=== PATIENT | female | born 1945 | race Caucasian/White ===

== ENCOUNTER 2016-10-06 19:11 | Inpatient (IN) | payer OTHER ==
[~2016-10-06] VITALS: Ht 162.6 cm; Wt 75.0 kg
[2016-10-06] MEDS ORDERED: morphine 4 MG/ML VIAL IV STA (22:04)
[2016-10-06] MEDS ORDERED: SOD CHLORIDE 0.9% 500 ML IV STA (22:04)
[2016-10-06] MEDS ORDERED: ONDANSETRON 4 MG INJ IV STA (22:04)
--- NOTE | 2016-10-06 22:40 | RADRPT ---
PROCEDURE: CT BRAIN WITHOUT CONTRAST CLINICAL INDICATION: 71-year-old female with headaches. TECHNIQUE: The study was performed utilizing Encentuate VCT 64-slice CT scanner. Direct axial sections were obtained from the foramen magnum to the vertex without the use of intravenous contrast material. Sagittal and coronal reformations were obtained. One or more the following dose reduction techniques were utilized: automated exposure control, adjustment of the mA and/or kV according to p atient's size or use of iterative reconstruction technique. The images were viewed on a PACS worksta tion. CTD/vol = 39.8 mGy; Total Exam DLP = 720.2 mGy-cm. COMPARISON: None. FINDINGS: There is mild degree of diffuse cortical and central atrophy with compensatory ventricular enlargeme nt. The ventricles are dilated out of proportion to the degree of atrophy raising the question of no rmal pressure hydrocephalus. There is no evidence for midline shift. There are periventricular are as of decreased density consistent with microangiopathic ischemic changes. There is no evidence for acute intra or extra-axial blood. The partially visualized paranasal sinuses and mastoid air cells are without significant abnormal soft tissue. IMPRESSION: 1. Mild diffuse atrophy with the ventricles dilated out of proportion to the degree of atrophy sugg estive of normal pressure hydrocephalus. Clinical correlation is necessary. 2. Microangiopathic ischemic changes. .Quoc Mcgovern MD, Date Time Electronically viewed and signed by .Quoc Mcgovern MD, on 10/06/2016 22:40 .M/
[2016-10-06 22:49] LABS: ADD SCAN DIFF NO
[2016-10-06 22:55] LABS: ABNORMAL IP MESSAGE 1; BASOPHIL # 0.1 10^3/ul (0.0-0.1); BASOPHILS % 0.7 % (0.0-2.0); EOSINOPHILS # 0.1 10^3/ul (0.0-0.5); EOSINOPHILS % 1.1 % (0.0-7.0); HEMATOCRIT 30.5 % (37.0-47.0); HEMOGLOBIN 8.2 g/dl (12.0-16.0); LYMPHOCYTES # 1.3 10^3/ul (0.8-2.9); LYMPHOCYTES % 14.2 % (15.0-51.0); MEAN CORPUSCULAR HEMOGLOBIN 16.9 pg (29.0-33.0); MEAN CORPUSCULAR HGB CONC 26.9 g/dl (32.0-37.0); MONOCYTE # 0.7 10^3/ul (0.3-0.9); MONOCYTES % 7.6 % (0.0-11.0); NEUTROPHIL # 7.1 10^3/ul (1.6-7.5); NEUTROPHILS % 75.5 % (39.0-77.0); PLATELET COUNT 445 10^3/UL (140-415); RED BLOOD COUNT 4.84 10^6/ul (4.20-5.40); RED CELL DISTRIBUTION WIDTH 23.1 % (11.5-14.5); WHITE BLOOD COUNT 9.4 10^3/ul (4.8-10.8)
[2016-10-06 23:01] LABS: CHLORIDE 103 mmol/L (97-110); INR 0.98; SODIUM 142 mmol/L (135-144)
[2016-10-06 23:02] LABS: PARTIAL THROMBOPLASTIN TIME 23.9 Sec (25.0-35.0); POTASSIUM 3.6 mmol/L (3.5-5.1)
--- NOTE | 2016-10-06 23:03 | RADRPT ---
PROCEDURE: XR Chest. CLINICAL INDICATION: Headache. TECHNIQUE: Single frontal chest x-ray. COMPARISON: None available. FINDINGS: The cardiomediastinal silhouette is unremarkable. Aortic atherosclerotic vascular calcifications are identified. Prominent interstitial pulmonary markings are noted, likely represent chronic changes. No pneumotho rax, pleural effusion or consolidation is seen. No acute osseous abnormality is noted. IMPRESSION: 1. Chronic interstitial pulmonary changes. 2. Aortic atherosclerosis. 3. Otherwise no acute cardiopulmonary abnormality. RPTAT: HFN .Brent Ochoa MD, MD Date Time Electronically viewed and signed by .Brent Ochoa MD, MD on 10/06/2016 23:02 .N/
[2016-10-06 23:04] LABS: CREATININE 0.77 mg/dl (0.44-1.00)
[2016-10-06 23:05] LABS: ANION GAP 15 (8-16); BLOOD UREA NITROGEN 19 mg/dl (7-20); CALCIUM 9.3 mg/dl (8.4-10.2); CARBON DIOXIDE 28 mmol/L (21-31); GLUCOSE 106 mg/dl (70-220)
[2016-10-06 23:20] LABS: TROPONIN-I < 0.012 ng/ml (0.00-0.12)
[2016-10-06] MEDS ORDERED: HYDROmorphONE 1 MG/ML SYG IV STA (23:29)
--- NOTE | 2016-10-07 01:51 | ERA ---
ER Documentation Chief Complaint Date/Time DATE: 10/07/16 TIME: 01:50 Chief Complaint hx of "clot in brain" since 05/2016. here for ha. argueta neuro le in triage HPI This is a 71-year-old female comes in with complaints of headache. Patient states her headache is getting progressively worse over the past 4-5 days and she feels it is pressure-like and moderate in intensity. Patient said she was diagnosed with some kind of "clot" back in May but she does unsure of her diagnosis. Denies any visual acuity changes. Denies any focal neurological complaints. Denies any urinary incontinence. ROS All systems reviewed and are negative except as per history of present illness. Allergies Allergies: Coded Allergies: No Known Allergy (Unverified , 10/06/16) PMhx/Soc Medical and Surgical Hx: pt denies Surgical Hx History of Surgery: No Anesthesia Reaction: No Hx Neurological Disorder: Yes ("clot in the brain" per pt in 05/2016) Hx Respiratory Disorders: No Hx Cardiac Disorders: Yes (htn) Hx Psychiatric Problems: No Hx Miscellaneous Medical Probl: No Hx Alcohol Use: No Hx Substance Use: No Smoking Status: Current every day smoker Physical Exam Vitals Vital Signs Date Time Temp Pulse Resp B/P Pulse Ox O2 Delivery O2 Flow Rate FiO2 10/07/16 00:29 98.0 89 20 129/88 99 Room Air 10/06/16 22:08 98.2 96 20 135/81 99 Room Air 10/06/16 19:24 98.0 99 20 125/88 94 Physical Exam Const: [] Head: Atraumatic Eyes: Normal Conjunctiva ENT: Normal External Ears, Nose and Mouth. Neck: Full range of motion..~ No meningismus. Resp: Clear to auscultation bilaterally Cardio: Regular rate and rhythm, no murmurs Abd: Soft, non tender, non distended. Normal bowel sounds Skin: No petechiae or rashes Back: No midline or flank tenderness Ext: No cyanosis, or edema Neur: Awake and alert Psych: Normal Mood and Affect Result Diagram: 10/06/16221910/06/162219 Results 24 hrs Laboratory Tests Test 10/06/16 22:20 Activated Partial Thromboplast Time 23.9Sec Anion Gap 15 Basophils # 0.110^3/ul Basophils % 0.7% Blood Urea Nitrogen 19mg/dl Calcium Level 9.3mg/dl Carbon Dioxide Level 28mmol/L Chloride Level 103mmol/L Creatinine 0.77mg/dl Eosinophils # 0.110^3/ul Eosinophils % 1.1% Glucose Level 106mg/dl Hematocrit 30.5% Hemoglobin 8.2g/dl INR International Normalized Ratio 0.98 Lymphocytes # 1.310^3/ul Lymphocytes % 14.2% Mean Corpuscular Hemoglobin 16.9pg Mean Corpuscular Hemoglobin Concent 26.9g/dl Mean Corpuscular Volume 63.0fl Mean Platelet Volume 10.0fl Monocytes # 0.710^3/ul Monocytes % 7.6% Neutrophils # 7.110^3/ul Neutrophils % 75.5% Nucleated Red Blood Cells # 0.010^3/ul Nucleated Red Blood Cells % 0.0/100WBC Platelet Count 97723^3/UL Potassium Level 3.6mmol/L Prothrombin Time 13.0Sec Prothrombin Time Ratio 1.0 Red Blood Count 4.8410^6/ul Red Cell Distribution Width 23.1% Sodium Level 142mmol/L Troponin I < 0.012ng/ml White Blood Count 9.410^3/ul Current Medications Medications (Trade) Dose Ordered Sig/Jason Route PRN Reason Start Time Stop Time Status Last Admin Dose Admin Sodium Chloride (NS) 500 ml @ 500 mls/hr Q1H STAT IV 10/06/16 22:04 10/06/16 23:03 DC 10/06/16 22:33 Ondansetron HCl (Zofran Inj) 4 mg ONCE STAT IV 10/06/16 22:04 10/06/16 22:06 DC 10/06/16 22:32 Morphine Sulfate (morphine) 4 mg ONCE STAT IV 10/06/16 22:04 10/06/16 22:06 DC 10/06/16 22:32 Hydromorphone HCl (Dilaudid) 0.5 mg ONCE STAT IV 10/06/16 23:29 10/06/16 23:30 DC 10/06/16 23:49 Procedures/MDM Chest X-ray 1V Interpreted by me: Soft Tissue: No acute abnormalities Bones: No acute abnormalities Mediastinum/Cardiac Silhouette/Lungs: No acute abnormalities EKG: Rate/Rhythm: Normal Sinus Rhythm QRS, ST, T-waves: No changes consistent w/ acute ischemia Impression: No evidence of ischemia or arrhythmia CT shows normal pressure hydrocephalus Medical decision-makin year female with normal pressure hydrocephalus. Patient will be admitted to hospitalist will consult neurology of his own accord Departure Diagnosis: Primary Impression: Normal pressure hydrocephalus Condition: Serious WARREN CABRALES Oct 07, 2016 01:51
[2016-10-07] MEDS ORDERED: DOCUSATE SODIUM 100 MG CAP PO PRN (03:00)
[2016-10-07] MEDS ORDERED: ACETAMINOPHEN 325 MG TAB PO PRN (03:00)
[2016-10-07] MEDS ORDERED: NA PHOSPHATE/BIPHOS 133 ML ENEMA PR PRN (03:00)
[2016-10-07] MEDS ORDERED: LORAZEPAM 2 MG INJ IV PRN (03:00)
[2016-10-07] MEDS ORDERED: ALBUTEROL/IPRATROPIUM (NEB) 3 ML AMP HHN PRN (03:00)
[2016-10-07] MEDS ORDERED: HYDROCODONE/APAP (5/325) TAB PO PRN (03:00)
[2016-10-07] MEDS ORDERED: NITROGLYCERIN (SL) 0.4 MG TAB SL PRN (03:00)
[2016-10-07] MEDS ORDERED: hydrALAzine 20 MG INJ IV PRN (03:00)
[2016-10-07] MEDS ORDERED: MAGNESIUM HYDROXIDE 30ML CUP PO PRN (03:00)
[2016-10-07] MEDS: morphine 2 MG INJ IV PRN ×3 (04:38→13:13)
[2016-10-07] MEDS: SOD CHLORIDE 0.45% 1,000 ML IV SCH ×3 (04:41→20:40)
--- NOTE | 2016-10-07 04:43 | HP ---
DATE OF ADMISSION: 10/06/2016 CHIEF COMPLAINT: Headache and possible brain clot. HISTORY OF PRESENT ILLNESS: A 71-year-old female with past medical history of hypertension, every d ay smoker, questionable brain clot in May 2016 and 2011, who says she has been having headache that has been getting worse since May 2016. She said initially she went to a hospital in [facility] because of headache at that time and she was diagnosed with "brain clot," a blood clot in the br ain. She said she was sent home without any medicines including no anticoagulation and did not have any operations performed. Since that time, she has been having worsening headache that has been ge tting more frequent. She also has said that she has been having some unsteady gait but has not had any loss of consciousness or falls. Denies any shortness of breath. No upper or lower GI bleeding. No diarrhea, no constipation. She has also denied dysuria but feels like she may be having freque ncy symptoms. She also feels like "something moving around in my body" near her back region and is concerned that maybe a possible blood clot was moved from her brain to her back, interestingly. PAST MEDICAL HISTORY: As stated above. ALLERGIES: NO KNOWN DRUG ALLERGIES. MEDICATIONS AT HOME: None. PAST SURGICAL HISTORY: She has had in the past. SOCIAL HISTORY: She smokes about 10 cigarettes a day or about half a pack a day for the last 50 yea rs. No alcohol use, no IV drug abuse. PHYSICAL EXAMINATION: VITAL SIGNS: Today, T-max 98.0, pulse 89, respirations 20, blood pressure 129/88, saturating at 99% on room air. GENERAL: The patient is lying in bed, answering questions appropriately, in no acute distress. HEENT: Pupils equal, round, react to light. Extraocular muscles intact. NECK: Supple, no thyromegaly. LUNGS: Clear to auscultation bilaterally. CARDIOVASCULAR: S1, S2 heard. No rubs or gallops. ABDOMEN: Soft, nontender, nondistended. Normal bowel sounds. No rebound or guarding. MUSCULOSKELETAL: No lower extremity edema bilaterally. NEUROLOGIC: 5/5 strength upper and lower extremities bilaterally. Gait was not assessed. Cranial nerves II through XII appear to be intact. Normal sensation in upper and lower extremities bilatera lly. LABORATORIES: CBC is normal except for MCV is 63. Her basic metabolic panel is normal. Troponin i s negative x1. Coags are normal. IMAGING: She had a head CT performed that shows mild diffuse atrophy with the ventricles dilated ou t of proportion to the degree of atrophy suggestive of normal pressure hydrocephalus. Clinical huber elation is necessary. Chest x-ray shows chronic interstitial pulmonary changes but otherwise no acu te cardiopulmonary abnormalities. ASSESSMENT AND PLAN: A 71-year-old female with headache getting progressively worse since May 2016 and especially over the last few days with findings of possible NPH on her brain CT scan. 1. Headache. Again, could be the result of patient having normal pressure hydrocephalus based on t he brain CT scan findings. We will get an MRI of the brain. Check TSH, A1c, and lipid panel and do neuro checks every 4 hours. Consider neurology or neurosurgery consult. The patient may also bene fit from a lumbar puncture as well. Tylenol p.r.n. pain and fevers. Also, follow up a UA as the tr iad of possible UTI, wobbly gait, and dilated ventricle findings could be suggestive of NPH. She do es show signs of some of these symptoms as well. 2. Hypertension. Blood pressure is presently stable. Continue current medications including hydra lazine p.r.n. 3. Questionable history of blood clot. Again, unclear source. May need to do hypercoagulable work up on the patient as well. 4. Gastrointestinal prophylaxis with PPI. 5. Deep vein thrombosis prophylaxis with heparin subcutaneously. Dictated By: IQRA PIMENTEL/LICO Conf#: [id number] DID#: [id number]
[2016-10-07] MEDS: PANTOPRAZOLE 40 MG INJ IV SCH (05:16)
[2016-10-07 06:12] LABS: IRON 12 ug/dl (35-150)
[2016-10-07 06:17] LABS: INR 1.04; PROTIME 13.6 Sec (12.2-14.2); PT RATIO 1.1
[2016-10-07 06:18] LABS: PARTIAL THROMBOPLASTIN TIME 24.3 Sec (25.0-35.0)
[2016-10-07 06:22] LABS: TOTAL IRON BINDING CAPACITY 362 ug/dl (241-421)
[2016-10-07] MEDS: HEPARIN 5,000 UNIT/0.5 ML SYG SC SCH ×2 (09:01→20:39)
[2016-10-07] MEDS: NICOTINE (14 MG/24 HR) PATCH TRANSDERM SCH (09:19)
[2016-10-07 09:47] VITALS: TEMP 98.1
[2016-10-07 10:17] VITALS: Ht 162.6 cm; Wt 75.0 kg
[2016-10-07 10:34] VITALS: BP 120/76; PULSE 87; RESP 18
--- NOTE | 2016-10-07 13:05 | CONS ---
Date/Time of Note Date/Time of Note DATE: 10/07/16 TIME: 12:57 Assessment/Plan Assessment/Plan Chief Complaint/Hosp Course 71 year old female with chronic history of smoking, reported history of previous blood clot/aneurysm? presenting with complaint of headaches, imaging suggestive of possible NPH. Gait is slightly wide based, otherwise no other associated symptoms of NPH reported. -may obtain MRI Brain w/o contrast for further evaluation , will order MRA to evaluate for aneurysm, vascular malformation -will continue to follow Problems: Consultation Date/Type/Reason Admit Date/Time Oct 07, 2016 at 01:13 Date of Consultation: Oct 07, 2016 Type of Consultation: Neurology Reason for Consultation evaluation for NPH Referring Provider: IQRA MAIN Hx of Present Illness 71 year old female with history of hypertension, chronic daily smoker up to 10 cigarettes a day, reported history of visit to the [facility] in May of last year with complaints of severe and worsening headaches diagnosed with possible blood clot now presenting with complaint of worsening headaches and weird sensation in her body, concerned the blood clot is traveling to her back. She denies any headaches at this time, no blurred vision or difficulty with her speech. Her concern for blood clot traveling prompted this admission. She reports history of back pain, denies any urinary incontinence, no memory issues, admits to some trouble with her gait over the past year. She feels wobbly, but denies any falls. A Head CT done in the ER showed enlarged ventricles out of proportion to atrophy suggestive of NPH. back pain headache Social History Smoking Status: Current every day smoker Exam/Review of Systems Vital Signs Vitals Vital Signs Date Time Temp Pulse Resp B/P Pulse Ox O2 Delivery O2 Flow Rate FiO2 10/07/16 10:34 97.6 87 18 120/76 98 Nasal Cannula 2.0 Exam Constitutional: alert, oriented Psych: anxiety Head: atraumatic, normocephalic Eyes: EOMI Neurological: TITLE MANAGER II-XII intact, DTR's symmetric, nl mental status, nl speech, nl strength, other (slightly wide based gait, turning is normal , does not require any assistance with ambulation) Results Result Diagram: 10/06/16221910/06/16 222 Results 24 hrs Laboratory Tests Test 10/06/16 22:20 10/07/16 05:20 10/07/16 05:33 Activated Partial Thromboplast Time 23.9 L 24.3 L Anion Gap 15 Basophils # 0.1 Basophils % 0.7 Blood Urea Nitrogen 19 Calcium Level 9.3 Carbon Dioxide Level 28 Chloride Level 103 Creatinine 0.77 Eosinophils # 0.1 Eosinophils % 1.1 Glucose Level 106 Hematocrit 30.5 L Hemoglobin 8.2 L INR International Normalized Ratio 0.98 1.04 Lymphocytes # 1.3 Lymphocytes % 14.2 L Mean Corpuscular Hemoglobin 16.9 L Mean Corpuscular Hemoglobin Concent 26.9 L Mean Corpuscular Volume 63.0 L Mean Platelet Volume 10.0 Monocytes # 0.7 Monocytes % 7.6 Neutrophils # 7.1 Neutrophils % 75.5 Nucleated Red Blood Cells # 0.0 Nucleated Red Blood Cells % 0.0 Platelet Count 445 H Potassium Level 3.6 Prothrombin Time 13.0 13.6 Prothrombin Time Ratio 1.0 1.1 Red Blood Count 4.84 Red Cell Distribution Width 23.1 H Sodium Level 142 Troponin I < 0.012 White Blood Count 9.4 Free Thyroxine 1.28 Iron Level 12 L Percent Iron Saturation 3 L Total Iron Binding Capacity 362 Medications Medications Current Medications Ondansetron HCl (Zofran Inj) 4 mg Q6H PRN IV NAUSEA AND/OR VOMITING; Start at 03:00 Acetaminophen (Tylenol Tab) 650 mg Q6H PRN PO PAIN LEVEL 1-3 OR FEVER; Start at 03:00 Acetaminophen/ Hydrocodone Bitart ([place] (5/325)) 1 tab Q6H PRN PO MODERATE PAIN LEVEL 4-6; Start 10/07/16 at 03:00 Morphine Sulfate (morphine) 2 mg Q4H PRN IV SEVERE PAIN LEVEL 7-10 Last administered on 10/07/16 09:01; Admin Dose 2 MG; Start 10/07/16 at 03:00 Docusate Sodium (Colace) 100 mg Q12H PRN PO CONSTIPATION; Start 10/07/16 at 03: 00 Magnesium Hydroxide (Milk Of Mag) 30 ml DAILY PRN PO CONSTIPATION; Start at 03:00 Sodium Biphosphate/ Sodium Phosphate (Fleet Enema) 133 ml DAILY PRN LA CONSTIPATION; Start 10/07/16 at 03:00 Pantoprazole (Protonix Iv) 40 mg DAILY@06 IV Last administered on 10/07/16 05: 16; Admin Dose 40 MG; Start 10/07/16 at 06:00 Heparin Sodium (Porcine) 5000 unit 5,000 unit Q12 SC Last administered on 09:01; Admin Dose 5,000 UNIT; Start 10/07/16 at 09:00 Sodium Chloride (1/2 NS) 1,000 ml @ 75 mls/hr [id number] IV Last administered on 10/07/16 04:41; Admin Dose 75 MLS/HR; Start 10/07/16 at 02:49 Lorazepam (Ativan) 0.5 mg Q6H PRN IV ANXIETY; Start 10/07/16 at 03:00 Hydralazine HCl (Apresoline) 10 mg Q6H PRN IV ELEVATED BLOOD PRESSURE; Start at 03:00 Clonidine (Catapres) 0.1 mg Q6H PRN PO ELEVATED BLOOD PRESSURE; Start 10/07/16 at 03:00 Nitroglycerin (Nitroglycerin (Sl Tab) 0.4 Mg) 1 tab Q5M PRN SL ANGINA; Start at 03:00 Nicotine (Nicoderm 14 Mg/ 24hr) 1 patch DAILY TRANSDERM Last administered on 09:19; Admin Dose 1 PATCH; Start 10/07/16 at 09:00 Influenza Virus Vaccine (Fluzone) 0.5 ml ONCE ONCE IM* ; Start 10/08/16 at 09:00 ; Stop 10/08/16 at 09:01 KIRSTEN BUSTAMANTE MD Oct 07, 2016 13:05
[2016-10-07] MEDS: NACL 0.9% 3 ML SYG IV SCH (13:13)
[2016-10-07 14:26] LABS: ADD UMIC YES; URINE BILIRUBIN (Dip) NEGATIVE (NEGATIVE); URINE BLOOD (Dip) NEGATIVE (NEGATIVE); URINE COLOR LT. YELLOW (YELLOW); URINE GLUCOSE (Dip) NEGATIVE (NEGATIVE); URINE KETONES (Dip) NEGATIVE (NEGATIVE); URINE LEUKOCYTE ESTERASE (Dip) 1+ (NEGATIVE); URINE NITRITE (Dip) NEGATIVE (NEGATIVE); URINE TOTAL PROTEIN (Dip) NEGATIVE (NEGATIVE); URINE UROBILINOGEN (Dip) 0.2 E.U./dL (0.1-1.0)
[2016-10-07 14:46] LABS: URINE RBCS 0-2 /HPF (0)
[2016-10-07 14:47] LABS: BACTERIA,URINE FEW
[2016-10-07 21:45] VITALS: BP 90/53; RESP 19
--- NOTE | 2016-10-08 00:02 | RADRPT ---
AMENDMENT: 10/08/2016 12:28:11 PM Leandro Ramos M.D Indeterminate focus of intermediate signal in the right petrous apex measuring 10 x 7 x 6 mm in (AP/ TR/CC) with corresponding findings on CT and may represent marrow fat or trapped secretions.. Vamshi mmend further evaluation with dedicated temporal bone CT. Additional pre and postcontrast fat suppre ssed MRI imaging may also be considered for further characterization. PROCEDURE: MR Brain without contrast. CLINICAL INDICATION: Dizziness TECHNIQUE: An MRI of the brain was performed on a 1.5 darnell scanner utilizing the following sequen adeola: Sagittal T1 weighted, axial T2 weighted, axial FLAIR, coronal GRE, and axial diffusion weighted with ADC mapping. COMPARISON: None FINDINGS: No evidence of restricted diffusion to suggest acute or early subacute ischemic infarction. There i s no evidence of intracranial hemorrhage, mass effect, or midline shift. No extra-axial fluid collec tions are seen. No hypointense signal abnormalities are seen on the GRE images to suggest the presence of blood degr adation products. Marked ventriculomegaly disproportionate to the degree of sulcal prominence with c onfluent periventricular T2 signal hyperintensity as well as scattered foci of T2 signal hyperintens ity throughout the periventricular and subcortical white matter bilaterally. These findings are abdiel picious for normal pressure hydrocephalus and chronic microvascular ischemic change in the deep whit e matter. Correlate clinically The remaining brain parenchyma is normal in morphology with preservation of orr white differentiati on. Moderate cerebral volume loss. The posterior fossa contents, brainstem, seventh - eighth cranial nerve complexes, pituitary axis, o rbits, paranasal sinuses, and mastoid air cells are unremarkable. Normal flow voids are visible in the proximal intracranial arteries and dural sinuses, indicating pa tency. IMPRESSION: 1. No acute or early subacute ischemic infarction or intracranial hemorrhage. 2. Marked ventriculomegaly disproportionate to the degree of sulcal prominence. Confluent perivent ricular T2 signal hyperintensity on FLAIR sequences raising the question of transependymal edema and normal pressure hydrocephalus. Correlate clinically. 3. Moderate chronic microvascular ischemic change. 4. Moderate cerebral volume loss. RPTAT:AAJJ Aydee Ramos Physician Date Time Electronically viewed and signed by Physician Daisha on 10/08/2016 12:29 ERIN/
--- NOTE | 2016-10-08 00:07 | RADRPT ---
PROCEDURE: MRA Brain. CLINICAL INDICATION: Dizziness. Evaluate for intracranial aneurysm or vascular malformation. TECHNIQUE: An MRA of the brain was performed on a 1.5 darnell scanner utilizing 3-D [id number] MR angiography technique. Source and MIP images were reviewed. COMPARISON: None FINDINGS: The internal carotid arteries are patent and normal in caliber. The middle cerebral and the anterio r cerebral arteries are also patent and normal in caliber with no significant luminal irregularity o r narrowing identified. Intact anterior and posterior communicating arteries. The posterior cerebral arteries are patent and normal in caliber. The basilar artery is patent and n ormal in caliber. The vertebral arteries are not visualized as they are below the inferior margin of the imaging plane, however, normal flow voids demonstrate patency and normal caliber codominant ayah tebral arteries MRI brain T2-weighted sequences.. No evidence of intracranial aneurysm, vascular malformation, or arterial dissection. IMPRESSION: 1. Normal MRA of the brain. 2. The inferior basilar artery and intradural vertebral arteries were not evaluated as in the of th e imaging planes inferiorly. Normal flow voids, however demonstrate codominant vertebral arteries o n the T2 axial imaging of the brain. RPTAT:AAJJ Physician Daisha Date Time Electronically viewed and signed by Physician Daisha on 10/08/2016 00:07 ERIN/
[2016-10-08] MEDS: morphine 2 MG INJ IV PRN ×5 (00:09→21:51)
[2016-10-08 06:18] LABS: CHOL/HDL RATIO 1.7 RATIO
[2016-10-08 06:23] LABS: ADD SCAN DIFF NO
[2016-10-08] MEDS: PANTOPRAZOLE 40 MG INJ IV SCH (06:29)
[2016-10-08 06:43] LABS: THYROID STIMULATING HORMONE 5.77 MIU/L (0.465-4.680)
[2016-10-08 07:46] LABS: POTASSIUM 3.9 mmol/L (3.5-5.1)
[2016-10-08 07:49] LABS: CREATININE 0.66 mg/dl (0.44-1.00)
[2016-10-08 07:50] LABS: MAGNESIUM 1.8 mg/dl (1.7-2.5); PHOSPHORUS 3.8 mg/dl (2.5-4.9)
[2016-10-08 08:01] LABS: ABNORMAL IP MESSAGE 1; BASOPHIL # 0.1 10^3/ul (0.0-0.1); BASOPHILS % 0.8 % (0.0-2.0); EOSINOPHILS # 0.2 10^3/ul (0.0-0.5); EOSINOPHILS % 2.7 % (0.0-7.0); HEMATOCRIT 23.6 % (37.0-47.0); LYMPHOCYTES % 31.5 % (15.0-51.0); MEAN CORPUSCULAR HEMOGLOBIN 17.2 pg (29.0-33.0); MEAN CORPUSCULAR HGB CONC 26.3 g/dl (32.0-37.0); MEAN CORPUSCULAR VOLUME 65.4 fl (82.0-101.0); MEAN PLATELET VOLUME 10.3 fl (7.4-10.4); MONOCYTE # 0.6 10^3/ul (0.3-0.9); MONOCYTES % 9.6 % (0.0-11.0); NEUTROPHIL # 3.5 10^3/ul (1.6-7.5); NEUTROPHILS % 54.6 % (39.0-77.0); PLATELET COUNT 331 10^3/UL (140-415); RED BLOOD COUNT 3.61 10^6/ul (4.20-5.40); RED CELL DISTRIBUTION WIDTH 23.3 % (11.5-14.5); WHITE BLOOD COUNT 6.4 10^3/ul (4.8-10.8)
[2016-10-08 08:06] VITALS: BP 139/78; RESP 18
[2016-10-08] MEDS: HEPARIN 5,000 UNIT/0.5 ML SYG SC SCH (08:21)
[2016-10-08] MEDS: NICOTINE (14 MG/24 HR) PATCH TRANSDERM SCH (08:21)
[2016-10-08] MEDS ORDERED: INFLUENZA VIRUS VACCINE 0.5 ML (DISPENSING) IM* ONE (09:00)
[2016-10-08 09:09] LABS: HEMOGLOBIN 6.2 g/dl (12.0-16.0)
--- NOTE | 2016-10-08 09:56 | CONS ---
Date/Time of Note Date/Time of Note DATE: 10/08/16 TIME: 09:36 Assessment/Plan Assessment/Plan Problems: (1) Normal pressure hydrocephalus Status: Acute Additional Assessment/Plan 1) Overall my impression is that the imaging and history are NOT consistent with normal pressure hydrocephalus, for the following reasons: 1) the imaging is more c/w obstructive process (ie third and lateral ventricles>> fourth, empty sella); 2) the patient has headache; 3) the patient has no sx suggestive of NPH such as dementia, magnetic gait, or urinary incontinence. Rather, it is possible that the patient has high ICP and headache related to the same. This is sometimes seen in patients with compensated hydrocephalus or LOVA (Long- standing Overt Ventriculomegaly of the Adult) who later in life decompensate after some inciting event (eg the "clot"). I recommend that an LP be done to assess for high ICP, and furthermore a fundoscopic exam to rule out papilledema could also be helpful. If the patient has neither symptoms of NPH, nor evidence of high intracranial pressure, then her imaging finding of ventriculomegaly is likely an incidental finding, and most likely does not need to be treated. 2) The patient has a right petrous apex lesion. although this was not reported on CT and MRI initially, I have reviewed the studies with Dr Valera and confirmed that this lesion could be consistent with either a dysplasia or less likely a neoplastic process. Lesions of the petrous apex can cause headache. In any event further investigation with an MRI of the brain and IAC protocol with and without contrast is warranted to better define this lesion. Consultation Date/Type/Reason Admit Date/Time Oct 07, 2016 at 01:13 Date of Consultation: Oct 08, 2016 Type of Consultation: neurological surgery Reason for Consultation hydrocephalus and headache Hx of Present Illness I was asked to consult on this patient by Dr. Phillips at 0300 yesterday and I agreed to see the patient after the MRI was completed. Patient is a 71 year old female who presents with a five month history of headache. No precipitating event noted; patient was evaluated in may in [place] with CTH and told she had a 'clot' but was discharged. Patient declined to follow up bc she was 'scared'. She recently moved to [place] and presented to the ER because of increasing headache. She states in May pain was a 9/10 and more recently is 10/10, but has been so for several weeks. She states she does not normally have headaches. No medication has helped alleviate the pain. The pain is relieved somewhat by laying supine. It is exacerbated by walking. Her pain is bilateral and invovles the 'whole head'. Pain is aching/ dull not lancinating. She has no facial pain or numbness. She denies any blurry vision, diplopia, or other visual changes.CT and MRI done in ED and yesterday demonstrate: 1) ventriculomegaly involving lateral and third ventricles with normal fourth ventricle; 2) partial empty sella; 3) ~1.5cm right petrous apex lesion (not reported on official report, but sclerotic on CT and heterogeneous on T1). Psychological: anxiety Social History Smoking Status: Current every day smoker Exam/Review of Systems Vital Signs Vitals Vital Signs Date Time Temp Pulse Resp B/P Pulse Ox O2 Delivery O2 Flow Rate FiO2 10/08/16 08:06 97.5 82 18 139/78 100 10/07/16 10:34 Nasal Cannula 2.0 Intake and Output 10/07/16 10/07/16 10/08/16 15:00 23:00 07:00 Intake Total 1240 ml 840 ml Balance 1240 ml 840 ml Exam Head: atraumatic Eyes: PERRL, nl conjunctiva, nl sclera ENMT: nl external ears & nose, nl lips & teeth Neck: non-tender, supple Musculoskeletal: muscle tone, nl extremities to inspection, nl gait and stance , range of motion Extremities: normal pulses 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, nl mental status, nl speech, nl strength Skin: nl turgor, rash or lesions Additional Comments [id number] fluent and appropriate fully oriented intact recall (short and fpc ) affect appropriate fund of knowledge appropriate for stated age and level of education, non-focal non-lateralizing neurologic exam Results Result Diagram: 10/08/1644410/08/16444 Results 24 hrs Laboratory Tests Test 10/08/16 04:45 Anion Gap 14 Basophils # 0.1 Basophils % 0.8 Blood Urea Nitrogen 17 Calcium Level 8.0 L Carbon Dioxide Level 23 Chloride Level 106 Cholesterol Level 102 Cholesterol/HDL Ratio 1.7 Creatinine 0.66 Eosinophils # 0.2 Eosinophils % 2.7 Glucose Level 74 HDL Cholesterol 57 Hematocrit 23.6 #L Hemoglobin 6.2 #*L LDL Cholesterol, Calculated 29 Lymphocytes # 2.0 Lymphocytes % 31.5 Magnesium Level 1.8 Mean Corpuscular Hemoglobin 17.2 L Mean Corpuscular Hemoglobin Concent 26.3 L Mean Corpuscular Volume 65.4 L Mean Platelet Volume 10.3 Monocytes # 0.6 Monocytes % 9.6 Neutrophils # 3.5 Neutrophils % 54.6 Nucleated Red Blood Cells # 0.0 Nucleated Red Blood Cells % 0.0 Phosphorus Level 3.8 Platelet Count 331 # Potassium Level 3.9 Red Blood Count 3.61 #L Red Cell Distribution Width 23.3 H Sodium Level 139 Thyroid Stimulating Hormone (TSH) 5.770 H Triglycerides Level 82 White Blood Count 6.4 # Medications Medications Current Medications Ondansetron HCl (Zofran Inj) 4 mg Q6H PRN IV NAUSEA AND/OR VOMITING; Start at 03:00 Acetaminophen (Tylenol Tab) 650 mg Q6H PRN PO PAIN LEVEL 1-3 OR FEVER; Start at 03:00 Acetaminophen/ Hydrocodone Bitart ([place] (5/325)) 1 tab Q6H PRN PO MODERATE PAIN LEVEL 4-6; Start 10/07/16 at 03:00 Morphine Sulfate (morphine) 2 mg Q4H PRN IV SEVERE PAIN LEVEL 7-10 Last administered on 10/08/16 06:59; Admin Dose 2 MG; Start 10/07/16 at 03:00 Docusate Sodium (Colace) 100 mg Q12H PRN PO CONSTIPATION; Start 10/07/16 at 03: 00 Magnesium Hydroxide (Milk Of Mag) 30 ml DAILY PRN PO CONSTIPATION; Start at 03:00 Sodium Biphosphate/ Sodium Phosphate (Fleet Enema) 133 ml DAILY PRN [place] CONSTIPATION; Start 10/07/16 at 03:00 Pantoprazole (Protonix Iv) 40 mg DAILY@06 IV Last administered on 10/08/16 06: 29; Admin Dose 40 MG; Start 10/07/16 at 06:00 Heparin Sodium (Porcine) 5000 unit 5,000 unit Q12 SC Last administered on 08:21; Admin Dose 5,000 UNIT; Start 10/07/16 at 09:00 Sodium Chloride (1/2 NS) 1,000 ml @ 75 mls/hr [id number] IV Last administered on 10/07/16 20:40; Admin Dose 75 MLS/HR; Start 10/07/16 at 02:49 Lorazepam (Ativan) 0.5 mg Q6H PRN IV ANXIETY; Start 10/07/16 at 03:00 Hydralazine HCl (Apresoline) 10 mg Q6H PRN IV ELEVATED BLOOD PRESSURE; Start at 03:00 Clonidine (Catapres) 0.1 mg Q6H PRN PO ELEVATED BLOOD PRESSURE; Start 10/07/16 at 03:00 Nitroglycerin (Nitroglycerin (Sl Tab) 0.4 Mg) 1 tab Q5M PRN SL ANGINA; Start at 03:00 Nicotine (Nicoderm 14 Mg/ 24hr) 1 patch DAILY TRANSDERM Last administered on 08:21; Admin Dose 1 PATCH; Start 10/07/16 at 09:00 SURESH AUGUSTE MD Oct 08, 2016 09:52
--- NOTE | 2016-10-08 12:03 | CONS ---
Date/Time of Note Date/Time of Note DATE: 10/08/16 TIME: 11:59 Consult Date/Type/Reason Admit Date/Time Oct 07, 2016 at 01:13 Initial Consult Date 10/08/16 Type of Consultation: Neurology Reason for Consultation evaluation for NPH Ordering Provider: IQRA MAIN Subjective no complaints overnight agreeable to plan for LP Objective Vital Signs Date Time Temp Pulse Resp B/P Pulse Ox O2 Delivery O2 Flow Rate FiO2 10/08/16 08:06 97.5 82 18 139/78 100 10/07/16 10:34 Nasal Cannula 2.0 Intake and Output 10/07/16 10/07/16 10/08/16 15:00 23:00 07:00 Intake Total 1240 ml 840 ml Balance 1240 ml 840 ml Exam awake and alert oriented x3 no aphasia CN II-XII intact Coordination no ataxia Sensory intact throughout Motor 5/5 throughout Gait slightly wide based Results/Medications Result Diagram: 10/08/16 0445 10/08/16 0445 Results 24 hrs Laboratory Tests Test 10/08/16 04:45 Anion Gap 14 Basophils # 0.1 Basophils % 0.8 Blood Urea Nitrogen 17 Calcium Level 8.0 L Carbon Dioxide Level 23 Chloride Level 106 Cholesterol Level 102 Cholesterol/HDL Ratio 1.7 Creatinine 0.66 Eosinophils # 0.2 Eosinophils % 2.7 Glucose Level 74 HDL Cholesterol 57 Hematocrit 23.6 #L Hemoglobin 6.2 #*L Hemoglobin A1c 5.7 LDL Cholesterol, Calculated 29 Lymphocytes # 2.0 Lymphocytes % 31.5 Magnesium Level 1.8 Mean Corpuscular Hemoglobin 17.2 L Mean Corpuscular Hemoglobin Concent 26.3 L Mean Corpuscular Volume 65.4 L Mean Platelet Volume 10.3 Monocytes # 0.6 Monocytes % 9.6 Neutrophils # 3.5 Neutrophils % 54.6 Nucleated Red Blood Cells # 0.0 Nucleated Red Blood Cells % 0.0 Phosphorus Level 3.8 Platelet Count 331 # Potassium Level 3.9 Red Blood Count 3.61 #L Red Cell Distribution Width 23.3 H Sodium Level 139 Thyroid Stimulating Hormone (TSH) 5.770 H Triglycerides Level 82 White Blood Count 6.4 # Medications Current Medications Ondansetron HCl (Zofran Inj) 4 mg Q6H PRN IV NAUSEA AND/OR VOMITING; Start at 03:00 Acetaminophen (Tylenol Tab) 650 mg Q6H PRN PO PAIN LEVEL 1-3 OR FEVER; Start at 03:00 Acetaminophen/ Hydrocodone Bitart ([place] (5/325)) 1 tab Q6H PRN PO MODERATE PAIN LEVEL 4-6; Start 10/07/16 at 03:00 Morphine Sulfate (morphine) 2 mg Q4H PRN IV SEVERE PAIN LEVEL 7-10 Last administered on 10/08/16 11:12; Admin Dose 2 MG; Start 10/07/16 at 03:00 Docusate Sodium (Colace) 100 mg Q12H PRN PO CONSTIPATION; Start 10/07/16 at 03: 00 Magnesium Hydroxide (Milk Of Mag) 30 ml DAILY PRN PO CONSTIPATION; Start at 03:00 Sodium Biphosphate/ Sodium Phosphate (Fleet Enema) 133 ml DAILY PRN [place] CONSTIPATION; Start 10/07/16 at 03:00 Heparin Sodium (Porcine) (Heparin (5000 Units/0.5 ml)) 5,000 unit Q12 SC Last administered on 10/08/16 08:21; Admin Dose 5,000 UNIT; Start 10/07/16 at 09:00 Lorazepam (Ativan) 0.5 mg Q6H PRN IV ANXIETY; Start 10/07/16 at 03:00 Hydralazine HCl (Apresoline) 10 mg Q6H PRN IV ELEVATED BLOOD PRESSURE; Start at 03:00 Clonidine (Catapres) 0.1 mg Q6H PRN PO ELEVATED BLOOD PRESSURE; Start 10/07/16 at 03:00 Nitroglycerin (Nitroglycerin (Sl Tab) 0.4 Mg) 1 tab Q5M PRN SL ANGINA; Start at 03:00 Nicotine (Nicoderm 14 Mg/ 24hr) 1 patch DAILY TRANSDERM Last administered on 08:21; Admin Dose 1 PATCH; Start 10/07/16 at 09:00 Pantoprazole (Protonix Tab) 40 mg DAILY@06 PO ; Start 10/09/16 at 06:00 Assessment/Plan Chief Complaint/Hosp Course 71 year old female with chronic history of smoking, reported history of previous blood clot/aneurysm? presenting with complaint of headaches, imaging suggestive of possible NPH. Gait is slightly wide based, otherwise no other associated symptoms of NPH reported. appreciate neurosurgery evaluation, planned for MRI Brain post contrast with attention to IAC to eval petrous lesion Lumbar Puncture planned to measure opening pressure will continue to follow Problems: KIRSTEN BUSTAMANTE MD Oct 08, 2016 12:03
--- NOTE | 2016-10-08 14:30 | PN ---
Date/Time of Note Date/Time of Note DATE: 10/08/16 TIME: 14:19 Assessment/Plan VTE Prophylaxis VTE Prophylaxis Intervention: SCD's Lines/Catheters IV Catheter Type (from Nrsg): Peripheral IV Urinary Cath still in place: No Assessment/Plan Assessment/Plan - Severe headaches. Continue [place] and morphine for pain. - Possible normal pressure hydrocephalus. Continue to monitor neurological status. is following in urology consultation. Plan for LP to eval ICP. Dr. Anderson is following in neurosurgery consultation. - Right petrous apex lesion - Anemia, stool for OB. Dr. Dean is asked to see patient in gastroenterology consultation. Dr. Cummins is asked to see patient in hematology consultation. - Hypertension, currently normotensive. Continue clonidine as needed. - Tobacco dependence Further recommendations based on clinical course. Plan of care discussed with Dr. Aguilar. Subjective 24 Hr Interval Summary Free Text/Dictation Patient is awake alert, denies any fever nausea vomiting, headache is well controlled on current pain medication, no neuro deficit per report from RN. Exam/Review of Systems Vital Signs Vitals Vital Signs Date Time Temp Pulse Resp B/P Pulse Ox O2 Delivery O2 Flow Rate FiO2 10/08/16 08:06 97.5 82 18 139/78 100 10/07/16 10:34 Nasal Cannula 2.0 Intake and Output 10/07/16 10/07/16 10/08/16 14:59 22:59 06:59 Intake Total 1240 ml 840 ml Balance 1240 ml 840 ml Exam Constitutional: alert, oriented Psych: no complaints Head: atraumatic, normocephalic Eyes: nl conjunctiva ENMT: nl external ears & nose Neck: supple Respiratory: clear to auscultation, normal air movement Cardiovascular: nl pulses, regular rate and rhythm Gastrointestinal: non-tender, soft Genitourinary - Female: nl adnexae Musculoskeletal: nl extremities to inspection Extremities: normal pulses 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 Skin: nl turgor Results Result Diagram: 10/08/1644410/08/16444 Results 24 hrs Laboratory Tests Test 10/08/16 04:45 Anion Gap 14 Basophils # 0.1 Basophils % 0.8 Blood Urea Nitrogen 17 Calcium Level 8.0 L Carbon Dioxide Level 23 Chloride Level 106 Cholesterol Level 102 Cholesterol/HDL Ratio 1.7 Creatinine 0.66 Eosinophils # 0.2 Eosinophils % 2.7 Glucose Level 74 HDL Cholesterol 57 Hematocrit 23.6 #L Hemoglobin 6.2 #*L Hemoglobin A1c 5.7 LDL Cholesterol, Calculated 29 Lymphocytes # 2.0 Lymphocytes % 31.5 Magnesium Level 1.8 Mean Corpuscular Hemoglobin 17.2 L Mean Corpuscular Hemoglobin Concent 26.3 L Mean Corpuscular Volume 65.4 L Mean Platelet Volume 10.3 Monocytes # 0.6 Monocytes % 9.6 Neutrophils # 3.5 Neutrophils % 54.6 Nucleated Red Blood Cells # 0.0 Nucleated Red Blood Cells % 0.0 Phosphorus Level 3.8 Platelet Count 331 # Potassium Level 3.9 Red Blood Count 3.61 #L Red Cell Distribution Width 23.3 H Sodium Level 139 Thyroid Stimulating Hormone (TSH) 5.770 H Triglycerides Level 82 White Blood Count 6.4 # Medications Medications Current Medications Ondansetron HCl (Zofran Inj) 4 mg Q6H PRN IV NAUSEA AND/OR VOMITING; Start at 03:00 Acetaminophen (Tylenol Tab) 650 mg Q6H PRN PO PAIN LEVEL 1-3 OR FEVER; Start at 03:00 Acetaminophen/ Hydrocodone Bitart ([place] (5/325)) 1 tab Q6H PRN PO MODERATE PAIN LEVEL 4-6; Start 10/07/16 at 03:00 Morphine Sulfate (morphine) 2 mg Q4H PRN IV SEVERE PAIN LEVEL 7-10 Last administered on 10/08/16t 11:12; Admin Dose 2 MG; Start 10/07/16 at 03:00 Docusate Sodium (Colace) 100 mg Q12H PRN PO CONSTIPATION; Start 10/07/16 at 03: 00 Magnesium Hydroxide (Milk Of Mag) 30 ml DAILY PRN PO CONSTIPATION; Start at 03:00 Sodium Biphosphate/ Sodium Phosphate (Fleet Enema) 133 ml DAILY PRN [place] CONSTIPATION; Start 10/07/16 at 03:00 Heparin Sodium (Porcine) (Heparin (5000 Units/0.5 ml)) 5,000 unit Q12 SC Last administered on 10/08/16 08:21; Admin Dose 5,000 UNIT; Start 10/07/16 at 09:00 Lorazepam (Ativan) 0.5 mg Q6H PRN IV ANXIETY; Start 10/07/16 at 03:00 Hydralazine HCl (Apresoline) 10 mg Q6H PRN IV ELEVATED BLOOD PRESSURE; Start at 03:00 Clonidine (Catapres) 0.1 mg Q6H PRN PO ELEVATED BLOOD PRESSURE; Start 10/07/16 at 03:00 Nitroglycerin (Nitroglycerin (Sl Tab) 0.4 Mg) 1 tab Q5M PRN SL ANGINA; Start at 03:00 Nicotine (Nicoderm 14 Mg/ 24hr) 1 patch DAILY TRANSDERM Last administered on t 08:21; Admin Dose 1 PATCH; Start 10/07/16 at 09:00 Pantoprazole (Protonix Tab) 40 mg DAILY@06 PO ; Start 10/09/16 at 06:00 TAYA SANFORD Oct 08, 2016 14:30
--- NOTE | 2016-10-08 14:46 | CONS ---
Date/Time of Note Date/Time of Note DATE: 10/08/16 TIME: 14:25 Assessment/Plan Assessment/Plan Chief Complaint/Hosp Course 71 yo female admitted with headaches found with severe microcytic anemia. Problems: Additional Assessment/Plan #Microcytic Anemia -pt appears to be severely iron deficient with a Ferritin of 3 -Agree with GI consult -will start IV iron x 5 days -complete anemia workup. r/o hemolysis with LDH and retic count. need to r/o Vit b12 and folate deficiency -will order Hb electrophoresis to r/o thalassemia #Headaches -appreciate neurology and neurosurgery recs to r/o increased intracranial pressure -f/u results of LP Consultation Date/Type/Reason Admit Date/Time Oct 07, 2016 at 01:13 Date of Consultation: Oct 08, 2016 Type of Consultation: Hematology Reason for Consultation microcytic anemia Referring Provider: ROM CASTANEDA MD Hx of Present Illness 71-year-old female, who is a chronic smoker, and questionable brain clot in May 2016 and 2011, who presents with worsening headaches since May 2016. This questionable "brain clot" was diagnosed at [facility] per the patient. She also elicited unsteady gait but has not had any loss of consciousness or falls. Initial CBC revealed a severe iron deficiency anemia with a Hg 8 that dropped to 6 after hydration. Pt currently denies any shortness of breath nor episodes of GI bleed. There are no signs of vaginal bleed. Constitutional: other (headaches) Eyes: pain ENT: other (headace) Respiratory: no complaints Cardiovascular: no complaints Gastrointestinal: no complaints Genitourinary: no complaints Musculoskeletal: no complaints Skin: no complaints Neurologic: dizziness, headache Psychological: anxiety Past Surgical History c sxn in past Family History Significant Family History: no pertinent family hx, other Social History Smoking Status: Current every day smoker Exam/Review of Systems Vital Signs Vitals Vital Signs Date Time Temp Pulse Resp B/P Pulse Ox O2 Delivery O2 Flow Rate FiO2 10/08/16 08:06 97.5 82 18 139/78 100 10/07/16 10:34 Nasal Cannula 2.0 Intake and Output 10/07/16 10/07/16 10/08/16 15:00 23:00 07:00 Intake Total 1240 ml 840 ml Balance 1240 ml 840 ml Exam Constitutional: alert, oriented Psych: anxiety, depression, no complaints Head: atraumatic, normocephalic Eyes: nl conjunctiva ENMT: nl external ears & nose Neck: non-tender, supple Respiratory: clear to auscultation, normal air movement Cardiovascular: nl pulses, regular rate and rhythm Gastrointestinal: soft Musculoskeletal: nl extremities to inspection, nl gait and stance Results Result Diagram: 10/08/1644410/08/16444 Results 24 hrs Laboratory Tests Test 10/08/16 04:45 Anion Gap 14 Basophils # 0.1 Basophils % 0.8 Blood Urea Nitrogen 17 Calcium Level 8.0 L Carbon Dioxide Level 23 Chloride Level 106 Cholesterol Level 102 Cholesterol/HDL Ratio 1.7 Creatinine 0.66 Eosinophils # 0.2 Eosinophils % 2.7 Glucose Level 74 HDL Cholesterol 57 Hematocrit 23.6 #L Hemoglobin 6.2 #*L Hemoglobin A1c 5.7 LDL Cholesterol, Calculated 29 Lymphocytes # 2.0 Lymphocytes % 31.5 Magnesium Level 1.8 Mean Corpuscular Hemoglobin 17.2 L Mean Corpuscular Hemoglobin Concent 26.3 L Mean Corpuscular Volume 65.4 L Mean Platelet Volume 10.3 Monocytes # 0.6 Monocytes % 9.6 Neutrophils # 3.5 Neutrophils % 54.6 Nucleated Red Blood Cells # 0.0 Nucleated Red Blood Cells % 0.0 Phosphorus Level 3.8 Platelet Count 331 # Potassium Level 3.9 Red Blood Count 3.61 #L Red Cell Distribution Width 23.3 H Sodium Level 139 Thyroid Stimulating Hormone (TSH) 5.770 H Triglycerides Level 82 White Blood Count 6.4 # Medications Medications Current Medications Ondansetron HCl (Zofran Inj) 4 mg Q6H PRN IV NAUSEA AND/OR VOMITING; Start at 03:00 Acetaminophen (Tylenol Tab) 650 mg Q6H PRN PO PAIN LEVEL 1-3 OR FEVER; Start at 03:00 Acetaminophen/ Hydrocodone Bitart ([place] (5/325)) 1 tab Q6H PRN PO MODERATE PAIN LEVEL 4-6; Start 10/07/16 at 03:00 Morphine Sulfate (morphine) 2 mg Q4H PRN IV SEVERE PAIN LEVEL 7-10 Last administered on 10/08/16t 11:12; Admin Dose 2 MG; Start 10/07/16 at 03:00 Docusate Sodium (Colace) 100 mg Q12H PRN PO CONSTIPATION; Start 10/07/16 at 03: 00 Magnesium Hydroxide (Milk Of Mag) 30 ml DAILY PRN PO CONSTIPATION; Start at 03:00 Sodium Biphosphate/ Sodium Phosphate (Fleet Enema) 133 ml DAILY PRN [place] CONSTIPATION; Start 10/07/16 at 03:00 Heparin Sodium (Porcine) (Heparin (5000 Units/0.5 ml)) 5,000 unit Q12 SC Last administered on 10/08/16 08:21; Admin Dose 5,000 UNIT; Start 10/07/16 at 09:00 Lorazepam (Ativan) 0.5 mg Q6H PRN IV ANXIETY; Start 10/07/16 at 03:00 Hydralazine HCl (Apresoline) 10 mg Q6H PRN IV ELEVATED BLOOD PRESSURE; Start at 03:00 Clonidine (Catapres) 0.1 mg Q6H PRN PO ELEVATED BLOOD PRESSURE; Start 10/07/16 at 03:00 Nitroglycerin (Nitroglycerin (Sl Tab) 0.4 Mg) 1 tab Q5M PRN SL ANGINA; Start at 03:00 Nicotine (Nicoderm 14 Mg/ 24hr) 1 patch DAILY TRANSDERM Last administered on 08:21; Admin Dose 1 PATCH; Start 10/07/16 at 09:00 Pantoprazole (Protonix Tab) 40 mg DAILY@06 PO ; Start 10/09/16 at 06:00 SHELLY GREENBERG M.D. Oct 08, 2016 14:38
[2016-10-08 17:14] LABS: RETICULOCYTE COUNT % 1.6 % (0.5-1.5)
--- NOTE | 2016-10-08 17:27 | RADRPT ---
PROCEDURE: MRI IACs, with and without contrast. CLINICAL INDICATION: Dizziness. Petrous apex lesion on brain MRI. TECHNIQUE: An MRI of the IAC was performed on a GE short bore 1.5 darnell scanner utilizing the foll owing sequences: Axial T2 whole brain, Thin-section imaging through the internal auditory canals wa s performed utilizing the following sequences: 3D volume high resolution T2 weighted axial, coronal and axial precontrast fat sat T1 3-D images and post contrast axial and coronal SPGR images with sa gittal reformats. 10 cc of [place] was given intravenously without complication. COMPARISON: MRI brain without contrast 10/07/2016. CT brain 10/06/2016. FINDINGS: MRI IACS: There is a small focus of signal abnormality in the right petrous apex which follows the same signal characteristics of the clivus bone marrow in keeping with asymmetric petrous apex pneumatization. There is no petrous apex lesion. There is homogeneous low signal of the skull on T1 and T2-weighted images in keeping with diffuse increased sclerosis and better seen on the recent CT. No focal skull lesion is identified. The internal auditory canals are bilaterally symmetric and normal in appearan ce. The seventh and eighth cranial nerve complexes appear normal with no evidence of abnormal enhan cement on the postcontrast images. No cerebellar pontine angle mass lesion is detected. The inner ear structures including the cochlea, vestibule and semicircular canals are unremarkable. No vascul ar loops are identified. The visualized fifth cranial nerves and Meckel's cave reveal no abnormalit y. The mastoid air cells are clear. Ventriculomegaly out of proportion to degree of volume loss is again noted. IMPRESSION: 1. Small focus of signal abnormality in the right petrous apex following the same signal characteri stics of the skull base bone marrow in keeping with asymmetric petrous apex pneumatization. No hola ous apex lesion. 2. Homogeneous low signal of the skull corresponding to diffusely increased sclerosis without focal skull lesion ,better visualized on the recent CT head. 3. Contrast enhanced MRI of the internal auditory canals reveals no abnormal enhancement to suggest acoustic schwannoma or labyrinthitis. RPTAT: BB .Lois Whitt MD, MD Date Time Electronically viewed and signed by .Lois Whitt MD, MD on 10/08/2016 17:27 .O/
[2016-10-08 17:56] LABS: FOLATE 4.6 ng/ml (2.8-20.0)
[2016-10-08] MEDS ORDERED: PEG/ELECTROLYTES 4L BTL PO ONE (19:00)
[2016-10-08 21:36] VITALS: BP 117/75; RESP 20
[2016-10-09] VITALS (10 sets, daily range): BP systolic 123–164; BP diastolic 75–100; PULSE 70–75; RESP 17–25
--- NOTE | 2016-10-09 02:01 | CONS ---
DATE OF ADMISSION: 10/07/2016 DATE OF CONSULTATION: 10/08/2016 TYPE OF CONSULTATION: Gastroenterology. Dear Dr. Aguilar, Thank you for asking me to see Mrs. Benz in GI consultation. HISTORY OF PRESENT ILLNESS: As you know, the patient is a 71-year-old white female, who is admitted to the hospital because of history of headache, and she had an MRI done which was negative. From t he GI standpoint, she has hemoglobin around 6.2 grams, hence the GI consultation is requested. Valeria ent says that her stool is dark at times, she has chronic heartburn, chronic dyspepsia. No nausea, but occasionally she has vomiting. No history of bright red bleeding from the rectum. She has lost 30 pounds of weight. No prior history of gastrointestinal problems. PAST MEDICAL HISTORY: Includes history as mentioned in the notes, history of hypertension, history of blood clots. SOCIAL HISTORY: Patient does not smoke or drink. PHYSICAL EXAMINATION: GENERAL: The patient is a 71-year-old white female, who is very alert, well built. VITAL SIGNS: She is afebrile. CARDIOVASCULAR: Normal heart sounds. RESPIRATORY: Normal breath sounds. ABDOMEN: Showed unremarkable findings. LABORATORY WORKUP: Hemoglobin is 6.2, hematocrit 23.6, platelet count is 331,000. Prothrombin time 13.6. BUN is 17, creatinine is 0.6. CLINICAL IMPRESSION: The patient presenting with history of severe iron deficiency anemia, rule out gastrointestinal causes including peptic ulcer disease, malignancy of the upper gastrointestinal as well as lower GI tract. She also has low serum B12. She probably could have a B12 deficiency. PLAN: At this time, recommend upper endoscopy, as well as lower endoscopy. Once again, Dr. Aguilar, thank you for this consultation. Dictated By: EVELYNE JOSEPH/NTS Conf#: [id number] DID#: [id number] CC: ROM AGUILAR MD;*EndCC*
[2016-10-09] MEDS: morphine 2 MG INJ IV PRN ×5 (02:18→21:17)
[2016-10-09] MEDS ORDERED: PANTOPRAZOLE (EC) 40 MG TAB PO SCH (06:00)
[2016-10-09 08:51] LABS: HEMOGLOBIN 6.6 g/dL (11.7-15.5); MCH 17.7 pg (27.0-33.0); MCV 61.7 fL (80.0-100.0); RDW 23.6 % (11.0-15.0); RED BLOOD CELL COUNT 3.73 Million/uL (3.80-5.10)
[2016-10-09] MEDS: NICOTINE (14 MG/24 HR) PATCH TRANSDERM SCH (08:53)
[2016-10-09 10:28] LABS: ADD SCAN DIFF NO
[2016-10-09 10:37] LABS: ABNORMAL IP MESSAGE 1; BASOPHIL # 0.1 10^3/ul (0.0-0.1); BASOPHILS % 0.9 % (0.0-2.0); EOSINOPHILS # 0.2 10^3/ul (0.0-0.5); EOSINOPHILS % 2.7 % (0.0-7.0); HEMATOCRIT 31.1 % (37.0-47.0); HEMOGLOBIN 8.9 g/dl (12.0-16.0); LYMPHOCYTES # 0.9 10^3/ul (0.8-2.9); LYMPHOCYTES % 17.1 % (15.0-51.0); MEAN CORPUSCULAR HEMOGLOBIN 19.5 pg (29.0-33.0); MEAN CORPUSCULAR HGB CONC 28.6 g/dl (32.0-37.0); MEAN CORPUSCULAR VOLUME 68.1 fl (82.0-101.0); MONOCYTE # 0.5 10^3/ul (0.3-0.9); MONOCYTES % 8.9 % (0.0-11.0); NEUTROPHIL # 3.8 10^3/ul (1.6-7.5); NEUTROPHILS % 69.3 % (39.0-77.0); PLATELET COUNT 331 10^3/UL (140-415); RED BLOOD COUNT 4.57 10^6/ul (4.20-5.40); RED CELL DISTRIBUTION WIDTH 24.5 % (11.5-14.5); WHITE BLOOD COUNT 5.5 10^3/ul (4.8-10.8)
[2016-10-09 10:44] LABS: POTASSIUM 3.9 mmol/L (3.5-5.1)
[2016-10-09 10:46] LABS: CREATININE 0.61 mg/dl (0.44-1.00)
[2016-10-09 10:47] LABS: CALCIUM 8.5 mg/dl (8.4-10.2)
[2016-10-09] MEDS ORDERED: LIDOCAINE 2% (SDV) 5 ML INJ ONE (11:54)
[2016-10-09] MEDS ORDERED: PROPOFOL 20 ML ONE (11:54)
[2016-10-09] MEDS ORDERED: ACETAMINOPHEN 500 MG TAB PO PRN (12:30)
[2016-10-09] MEDS ORDERED: ONDANSETRON 4 MG INJ IV PRN (12:30)
[2016-10-09] MEDS ORDERED: NALOXONE (0.4 MG/ML) INJ IV PRN (12:30)
[2016-10-09] MEDS ORDERED: CYANOCOBALAMIN 1000 MCG INJ IM ONE (12:30)
[2016-10-09] MEDS ORDERED: ACETAMINOPHEN/CODEINE #3 TAB PO PRN ×2 (12:30)
--- NOTE | 2016-10-09 13:49 | GILP ---
DATE OF PROCEDURE: PROCEDURE: Esophagogastroduodenoscopy. SURGEON: Sheng Dean MD PREOPERATIVE DIAGNOSIS: The patient presenting with history of severe anemia with hemoglobin 6.2 gr ams, rule out bleeding ulcer disease. POSTOPERATIVE DIAGNOSES: 1. Multiple duodenal bulb ulcers. 2. Small antral ulcer. 3. Small fundal ulcer. 4. Hiatal hernia. DESCRIPTION OF PROCEDURE: After informed written consent was obtained, the patient was asked to lie on the left lateral side. Intravenous anesthesia was given by [employer]. When the patient became somno lent, Olympus video upper endoscope was introduced into the oropharynx, then into the esophagus. Es ophagus appeared normal. A small hiatal hernia was noted. Scope at this time was advanced into the stomach. Stomach showed evidence of a 4 mm linear ulcer in the antrum and also a 4 mm linear ulcer noted in the fundus of the stomach with minimal gastritis. Duodenal bulb showed evidence of a larg e ulcer measuring at least 1.5 cm in diameter. Adjacent to this ulcer, there is also evidence of 2 more small ulcers noted causing little narrowing of the lumen going on in to the duodenum. No tumor noted in this area. Biopsies were obtained from the lesser curvature and the antrum and also the fundus to rule out H. pylori infection. Scope at this time was withdrawn and no additional abn ormalities detected and the procedure was terminated. PLAN: Recommend proton pump inhibitor therapy, Protonix 40 mg twice a day. Recommend serum fasting gastrin. Dictated By: SHENG JOSEPH/NTS Conf#: [id number] DID#: [id number] CC: ROM CASTANEDA MD; IQRA MAIN; SHENG DEAN MD;*EndCC*
[2016-10-09] MEDS: SOD FERRIC GLUC COMPLX 125 MG in SOD CHLORIDE 0.9% 100 ML IVPB SCH (14:32)
--- NOTE | 2016-10-09 18:29 | PN ---
Date/Time of Note Date/Time of Note DATE: 10/09/16 TIME: 18:21 Assessment/Plan VTE Prophylaxis VTE Prophylaxis Intervention: SCD's Lines/Catheters IV Catheter Type (from Nrs): Peripheral IV Urinary Cath still in place: No Assessment/Plan Chief Complaint/Hosp Course Assessment/Plan - Severe headaches. Continue [place] and morphine for pain. - Possible normal pressure hydrocephalus. Continue to monitor neurological status. Dr. Hannon is following in urology consultation. Plan for LP to eval ICP. Dr. Anderson is following in neurosurgery consultation. - Right petrous apex lesion - Anemia of blood loss, stool for OB is positive. Status post blood transfusion. Continue to monitor hemoglobin and hematocrit. Dr. Dean is following in gastroenterology consultation. Dr. Cummins is asked to see patient in hematology consultation. -Multiple gastric and duodenal ulcers per EGD. Continue Protonix BID. - Hypertension, currently normotensive. Continue clonidine as needed. - Tobacco dependence, tobacco cessation is strongly advised. Further recommendations based on clinical course. Plan of care discussed with Dr. Aguilar. Problems: Subjective 24 Hr Interval Summary Free Text/Dictation Patient patient went to the procedure during the rounds, no acute events or neurological deficits reported per RN prior to procedure. Exam/Review of Systems Vital Signs Vitals Vital Signs Date Time Temp Pulse Resp B/P Pulse Ox O2 Delivery O2 Flow Rate FiO2 10/09/16 12:58 74 25 150/85 100 Room Air 10/09/16 12:48 2.0 10/09/16 12:28 98.0 Intake and Output 10/08/16 10/08/16 10/09/16 15:00 23:00 07:00 Intake Total 375 ml 1080 ml 600 ml Balance 375 ml 1080 ml 600 ml Results Result Diagram: 10/09/16 0940 10/09/16 0940 Results 24 hrs Laboratory Tests Test 10/09/16 01:00 10/09/16 03:50 10/09/16 09:40 Stool Occult Blood POSITIVE POSITIVE White Blood Count 5.5 Red Blood Count 4.57 # Hemoglobin 8.9 #L Hematocrit 31.1 #L Mean Corpuscular Volume 68.1 L Mean Corpuscular Hemoglobin 19.5 L Mean Corpuscular Hemoglobin Concent 28.6 L Red Cell Distribution Width 24.5 H Platelet Count 331 Mean Platelet Volume 10.0 Neutrophils % 69.3 Lymphocytes % 17.1 Monocytes % 8.9 Eosinophils % 2.7 Basophils % 0.9 Nucleated Red Blood Cells % 0.0 Neutrophils # 3.8 Lymphocytes # 0.9 Monocytes # 0.5 Eosinophils # 0.2 Basophils # 0.1 Nucleated Red Blood Cells # 0.0 Sodium Level 141 Potassium Level 3.9 Chloride Level 107 Carbon Dioxide Level 26 Anion Gap 12 Blood Urea Nitrogen 12 Creatinine 0.61 Glucose Level 79 Calcium Level 8.5 Medications Medications Current Medications Ondansetron HCl (Zofran Inj) 4 mg Q6H PRN IV NAUSEA AND/OR VOMITING; Start at 03:00 Acetaminophen (Tylenol Tab) 650 mg Q6H PRN PO PAIN LEVEL 1-3 OR FEVER; Start at 03:00 Morphine Sulfate (morphine) 2 mg Q4H PRN IV SEVERE PAIN LEVEL 7-10 Last administered on 10/09/16 17:15; Admin Dose 2 MG; Start 10/07/16 at 03:00 Docusate Sodium (Colace) 100 mg Q12H PRN PO CONSTIPATION; Start 10/07/16 at 03: 00 Magnesium Hydroxide (Milk Of Mag) 30 ml DAILY PRN PO CONSTIPATION; Start at 03:00 Sodium Biphosphate/ Sodium Phosphate (Fleet Enema) 133 ml DAILY PRN [place] CONSTIPATION; Start 10/07/16 at 03:00 Lorazepam (Ativan) 0.5 mg Q6H PRN IV ANXIETY; Start 10/07/16 at 03:00 Hydralazine HCl (Apresoline) 10 mg Q6H PRN IV ELEVATED BLOOD PRESSURE; Start at 03:00 Clonidine (Catapres) 0.1 mg Q6H PRN PO ELEVATED BLOOD PRESSURE; Start 10/07/16 at 03:00 Nitroglycerin (Nitroglycerin (Sl Tab) 0.4 Mg) 1 tab Q5M PRN SL ANGINA; Start at 03:00 Nicotine (Nicoderm 14 Mg/ 24hr) 1 patch DAILY TRANSDERM Last administered on 08:53; Admin Dose 1 PATCH; Start 10/07/16 at 09:00 Pantoprazole 40 mg 40 mg DAILY@06 PO ; Start 10/09/16 at 06:00 Ferric Sodium Gluconate Complex/ Sodium Chloride (Ferrlecit/NS) 110 ml @ 110 mls/hr Q24H IVPB Last administered on 10/09/16t 14:32; Admin Dose 110 MLS/HR; Start 10/09/16 at 12:00; Stop 10/13/16 at 12:59 Naloxone HCl (Narcan) 0.2 mg PRN PRN IV DECREASED REPIRATORY RATE; Start at 12:30 Acetaminophen/ Codeine Phosphate (Tylenol No.3) 1 tab Q4H PRN PO PAIN LEVEL 1-5 ; Start 10/09/16 at 12:30 Acetaminophen/ Codeine Phosphate (Tylenol No.3) 2 tab Q4H PRN PO PAIN LEVEL 6- 10; Start 10/09/16 at 12:30 TAYA SANFORD Oct 09, 2016 18:28
[2016-10-09] MEDS: PANTOPRAZOLE (EC) 40 MG TAB PO SCH (20:22)
[2016-10-10 05:35] LABS: ADD SCAN DIFF NO
[2016-10-10 06:03] LABS: ABNORMAL IP MESSAGE 1; BASOPHILS % 0.6 % (0.0-2.0); EOSINOPHILS # 0.1 10^3/ul (0.0-0.5); HEMATOCRIT 29.1 % (37.0-47.0); HEMOGLOBIN 8.5 g/dl (12.0-16.0); LYMPHOCYTES # 0.8 10^3/ul (0.8-2.9); LYMPHOCYTES % 12.5 % (15.0-51.0); MEAN CORPUSCULAR HEMOGLOBIN 19.5 pg (29.0-33.0); MEAN CORPUSCULAR HGB CONC 29.2 g/dl (32.0-37.0); MEAN CORPUSCULAR VOLUME 66.7 fl (82.0-101.0); MEAN PLATELET VOLUME 9.9 fl (7.4-10.4); MONOCYTE # 0.6 10^3/ul (0.3-0.9); MONOCYTES % 9.5 % (0.0-11.0); NEUTROPHIL # 4.8 10^3/ul (1.6-7.5); NEUTROPHILS % 73.4 % (39.0-77.0); NUCLEATED RED BLOOD CELLS% 0.3 /100WBC (0.0-0.0); PLATELET COUNT 313 10^3/UL (140-415); RED BLOOD COUNT 4.36 10^6/ul (4.20-5.40); RED CELL DISTRIBUTION WIDTH 24.9 % (11.5-14.5); WHITE BLOOD COUNT 6.6 10^3/ul (4.8-10.8)
[2016-10-10] MEDS: morphine 2 MG INJ IV PRN ×4 (06:13→20:41)
[2016-10-10 06:43] LABS: POTASSIUM 3.8 mmol/L (3.5-5.1)
[2016-10-10 06:45] LABS: CREATININE 0.56 mg/dl (0.44-1.00)
[2016-10-10 06:46] LABS: CALCIUM 8.9 mg/dl (8.4-10.2)
--- NOTE | 2016-10-10 07:45 | QN ---
Documentation Comment Patient seen in follow up. MRI with fat saturation shows petrous apex marrow signal without enhancement (likely anatomic variant without pathological process ). Her headaches have resolved over the last 24-48 hours. She is awake and alert and moving all extremities with full power. She is going to get an LP today. She is also concurrently being worked up for low H&H. If LP does not demonstrate high ICP and headaches do not recur, patient may be safely followed as outpatient. SURESH AUGUSTE MD Oct 10, 2016 07:45
[2016-10-10 08:19] VITALS: BP 136/81; RESP 18
[2016-10-10] MEDS: NICOTINE (14 MG/24 HR) PATCH TRANSDERM SCH (09:09)
[2016-10-10] MEDS: PANTOPRAZOLE (EC) 40 MG TAB PO SCH ×2 (09:09→20:41)
[2016-10-10] MEDS: SOD FERRIC GLUC COMPLX 125 MG in SOD CHLORIDE 0.9% 100 ML IVPB SCH (11:37)
--- NOTE | 2016-10-10 11:47 | CONS ---
Date/Time of Note Date/Time of Note DATE: 10/10/16 TIME: 11:40 Consult Date/Type/Reason Admit Date/Time Oct 07, 2016 at 01:13 Initial Consult Date 10/08/16 Type of Consultation: Neurology Reason for Consultation evaluation for NPH Ordering Provider: ROM CASTANEDA MD Subjective denies headaches no further gait issues awaiting LP this afternoon Objective Vital Signs Date Time Temp Pulse Resp B/P Pulse Ox O2 Delivery O2 Flow Rate FiO2 10/10/16 08:19 97.4 82 18 136/81 93 10/09/16 12:58 Room Air 10/09/16 12:48 2.0 Intake and Output 10/09/16 10/09/16 10/10/16 15:00 23:00 07:00 Intake Total 350 ml 500 ml 300 ml Output Total 600 ml Balance 350 ml -100 ml 300 ml Exam awake and alert oriented x3 no aphasia CN II-XII intact Coordination no ataxia Sensory intact throughout Motor 5/5 throughout Gait slightly wide based Results/Medications Result Diagram: 10/10/16 0455 10/10/16 0455 Results 24 hrs Laboratory Tests Test 10/10/16 04:55 White Blood Count 6.6 Red Blood Count 4.36 Hemoglobin 8.5 L Hematocrit 29.1 L Mean Corpuscular Volume 66.7 L Mean Corpuscular Hemoglobin 19.5 L Mean Corpuscular Hemoglobin Concent 29.2 L Red Cell Distribution Width 24.9 H Platelet Count 313 Mean Platelet Volume 9.9 Neutrophils % 73.4 Lymphocytes % 12.5 L Monocytes % 9.5 Eosinophils % 2.0 Basophils % 0.6 Nucleated Red Blood Cells % 0.3 H Neutrophils # 4.8 Lymphocytes # 0.8 Monocytes # 0.6 Eosinophils # 0.1 Basophils # 0.0 Nucleated Red Blood Cells # 0.0 Sodium Level 140 Potassium Level 3.8 Chloride Level 106 Carbon Dioxide Level 27 Anion Gap 11 Blood Urea Nitrogen 7 Creatinine 0.56 Glucose Level 80 Calcium Level 8.9 Medications Current Medications Ondansetron HCl (Zofran Inj) 4 mg Q6H PRN IV NAUSEA AND/OR VOMITING; Start at 03:00 Acetaminophen (Tylenol Tab) 650 mg Q6H PRN PO PAIN LEVEL 1-3 OR FEVER; Start at 03:00 Morphine Sulfate (morphine) 2 mg Q4H PRN IV SEVERE PAIN LEVEL 7-10 Last administered on 10/10/16 06:13; Admin Dose 2 MG; Start 10/07/16 at 03:00 Docusate Sodium (Colace) 100 mg Q12H PRN PO CONSTIPATION; Start 10/07/16 at 03: 00 Magnesium Hydroxide (Milk Of Mag) 30 ml DAILY PRN PO CONSTIPATION; Start at 03:00 Sodium Biphosphate/ Sodium Phosphate (Fleet Enema) 133 ml DAILY PRN [place] CONSTIPATION; Start 10/07/16 at 03:00 Lorazepam (Ativan) 0.5 mg Q6H PRN IV ANXIETY; Start 10/07/16 at 03:00 Hydralazine HCl (Apresoline) 10 mg Q6H PRN IV ELEVATED BLOOD PRESSURE; Start at 03:00 Clonidine (Catapres) 0.1 mg Q6H PRN PO ELEVATED BLOOD PRESSURE; Start 10/07/16 at 03:00 Nitroglycerin (Nitroglycerin (Sl Tab) 0.4 Mg) 1 tab Q5M PRN SL ANGINA; Start at 03:00 Nicotine 1 patch 1 patch DAILY TRANSDERM Last administered on 10/10/16 09:09; Admin Dose 1 PATCH; Start 10/07/16 at 09:00 Ferric Sodium Gluconate Complex/ Sodium Chloride (Ferrlecit/NS) 110 ml @ 110 mls/hr Q24H IVPB Last administered on 10/10/16 11:37; Admin Dose 110 MLS/HR; Start 10/09/16 at 12:00; Stop 10/13/16 at 12:59 Naloxone HCl (Narcan) 0.2 mg PRN PRN IV DECREASED REPIRATORY RATE; Start at 12:30 Acetaminophen/ Codeine Phosphate (Tylenol No.3) 1 tab Q4H PRN PO PAIN LEVEL 1-5 ; Start 10/09/16 at 12:30 Acetaminophen/ Codeine Phosphate (Tylenol No.3) 2 tab Q4H PRN PO PAIN LEVEL 6- 10; Start 10/09/16 at 12:30 Pantoprazole (Protonix Tab) 40 mg BID PO Last administered on 10/10/16 09:09; Admin Dose 40 MG; Start 10/09/16 at 21:00 Assessment/Plan Chief Complaint/Hosp Course 71 year old female with chronic history of smoking, reported history of previous blood clot/aneurysm? presenting with complaint of headaches, imaging suggestive of possible NPH. Gait is slightly wide based, otherwise no other associated symptoms of NPH reported. -Lumbar Puncture planned for this afternoon ,recommend checking opening pressure to evaluate for elevated pressure and removal 20-25 cc to evaluate for gait improvement -CSF studies cultures, cell count, glucose and protein ordered -if stable post LP and opening pressure is normal, she may be discharged from neurology perspective with outpatient follow up Problems: KIRSTEN BUSTAMANTE MD Oct 10, 2016 11:47
[2016-10-10 13:53] LABS: HEMOGLOBIN A 98.3 % (>96.0); HEMOGLOBIN A2 (QUANT) 1.7 % (1.8-3.5); HEMOGLOBIN F <1.0 % (<2.0)
--- NOTE | 2016-10-10 15:32 | CONS ---
Date/Time of Note Date/Time of Note DATE: 10/10/16 TIME: 15:28 Assessment/Plan Assessment/Plan Chief Complaint/Hosp Course Chief Complaint/Hosp Course 71 yo female admitted with headaches found with severe microcytic anemia. Problems: Additional Assessment/Plan #Microcytic Anemia -pt appears to be severely iron deficient with a %sat 3, will check Ferritin -Agree with GI consult. Multiple gastric and duodenal ulcers per EGD on . -will start IV iron x 5 days 10/09/16-10/13/16 -complete anemia workup. LDH WNL, haptoglobin pending; retic count inappropriately low; B12 normal albeit on lower end of normal, Folate WNL -will order Hb electrophoresis to r/o thalassemia (pending), epo level pending #Headaches -appreciate neurology and neurosurgery recs to r/o increased intracranial pressure -f/u results of LP Problems: Consultation Date/Type/Reason Admit Date/Time Oct 07, 2016 at 01:13 Initial Consult Date 10/08/16 Type of Consultation: Hematology Referring Provider: ROM CASTANEDA MD 24 HR Interval Summary Free Text/Dictation No complaints, patient doing well. She states that she had her LP today. Exam/Review of Systems Vital Signs Vitals Vital Signs Date Time Temp Pulse Resp B/P Pulse Ox O2 Delivery O2 Flow Rate FiO2 10/10/16 08:19 97.4 82 18 136/81 93 10/09/16 12:58 Room Air 10/09/16 12:48 2.0 Intake and Output 10/09/16 10/09/16 10/10/16 15:00 23:00 07:00 Intake Total 350 ml 500 ml 300 ml Output Total 600 ml Balance 350 ml -100 ml 300 ml Exam Constitutional: alert, oriented Psych: anxiety, depression, no complaints Head: atraumatic, normocephalic Eyes: nl conjunctiva ENMT: nl external ears & nose Neck: non-tender, supple Respiratory: clear to auscultation, normal air movement Cardiovascular: nl pulses, regular rate and rhythm Gastrointestinal: soft Musculoskeletal: nl extremities to inspection, nl gait and stance Results Result Diagram: 10/10/16 0455 10/10/16 0455 Results 24 hrs Laboratory Tests Test 10/10/16 04:55 White Blood Count 6.6 Red Blood Count 4.36 Hemoglobin 8.5 L Hematocrit 29.1 L Mean Corpuscular Volume 66.7 L Mean Corpuscular Hemoglobin 19.5 L Mean Corpuscular Hemoglobin Concent 29.2 L Red Cell Distribution Width 24.9 H Platelet Count 313 Mean Platelet Volume 9.9 Neutrophils % 73.4 Lymphocytes % 12.5 L Monocytes % 9.5 Eosinophils % 2.0 Basophils % 0.6 Nucleated Red Blood Cells % 0.3 H Neutrophils # 4.8 Lymphocytes # 0.8 Monocytes # 0.6 Eosinophils # 0.1 Basophils # 0.0 Nucleated Red Blood Cells # 0.0 Sodium Level 140 Potassium Level 3.8 Chloride Level 106 Carbon Dioxide Level 27 Anion Gap 11 Blood Urea Nitrogen 7 Creatinine 0.56 Glucose Level 80 Calcium Level 8.9 Medications Medications Current Medications Ondansetron HCl (Zofran Inj) 4 mg Q6H PRN IV NAUSEA AND/OR VOMITING; Start at 03:00 Acetaminophen (Tylenol Tab) 650 mg Q6H PRN PO PAIN LEVEL 1-3 OR FEVER; Start at 03:00 Morphine Sulfate (morphine) 2 mg Q4H PRN IV SEVERE PAIN LEVEL 7-10 Last administered on 10/10/16 11:43; Admin Dose 2 MG; Start 10/07/16 at 03:00 Docusate Sodium (Colace) 100 mg Q12H PRN PO CONSTIPATION; Start 10/07/16 at 03: 00 Magnesium Hydroxide (Milk Of Mag) 30 ml DAILY PRN PO CONSTIPATION; Start at 03:00 Sodium Biphosphate/ Sodium Phosphate (Fleet Enema) 133 ml DAILY PRN [place] CONSTIPATION; Start 10/07/16 at 03:00 Lorazepam (Ativan) 0.5 mg Q6H PRN IV ANXIETY; Start 10/07/16 at 03:00 Hydralazine HCl (Apresoline) 10 mg Q6H PRN IV ELEVATED BLOOD PRESSURE; Start at 03:00 Clonidine (Catapres) 0.1 mg Q6H PRN PO ELEVATED BLOOD PRESSURE; Start 10/07/16 at 03:00 Nitroglycerin (Nitroglycerin (Sl Tab) 0.4 Mg) 1 tab Q5M PRN SL ANGINA; Start at 03:00 Nicotine 1 patch 1 patch DAILY TRANSDERM Last administered on 10/10/16 09:09; Admin Dose 1 PATCH; Start 10/07/16 at 09:00 Ferric Sodium Gluconate Complex/ Sodium Chloride (Ferrlecit/NS) 110 ml @ 110 mls/hr Q24H IVPB Last administered on 10/10/16 11:37; Admin Dose 110 MLS/HR; Start 10/09/16 at 12:00; Stop 10/13/16 at 12:59 Naloxone HCl (Narcan) 0.2 mg PRN PRN IV DECREASED REPIRATORY RATE; Start at 12:30 Acetaminophen/ Codeine Phosphate (Tylenol No.3) 1 tab Q4H PRN PO PAIN LEVEL 1-5 ; Start 10/09/16 at 12:30 Acetaminophen/ Codeine Phosphate (Tylenol No.3) 2 tab Q4H PRN PO PAIN LEVEL 6- 10; Start 10/09/16 at 12:30 Pantoprazole (Protonix Tab) 40 mg BID PO Last administered on 10/10/16 09:09; Admin Dose 40 MG; Start 10/09/16 at 21:00 TOFRANKIE MD Oct 10, 2016 15:32
[2016-10-10 17:10] VITALS: BP 131/76; PULSE 88; RESP 18
--- NOTE | 2016-10-10 17:27 | RADRPT ---
PROCEDURE: Fluoroscopic guided lumbar puncture. CLINICAL INDICATION: Headache. TECHNIQUE: Prior to the procedure, informed consent was obtained. Risks including bleeding and in fection were explained to the patient. The patient understood and was willing to proceed. A proced ural pause was performed. The patient's name, date of , and procedure to be performed were ayah ified. Using local anesthetic, sterile technique, and fluoroscopic guidance, a 22-gauge spinal needle was a dvanced into the thecal sac at the L4-5 level. Opening pressure was 10 cm of water. 11 mL of clear cerebrospinal fluid was aspirated and sent for laboratory analysis. The needle was removed. A elliot ssing was applied. The patient tolerated the procedure well. A total of 0.6 minutes of fluoroscopy time was used. COMPARISON: None. FINDINGS: Images demonstrate the needle at the L4-5 level in the thecal sac. IMPRESSION: Satisfactory fluoroscopic guided lumbar puncture. The opening pressure was 10 cm of water. RPTAT: QQ .Suresh Valera MD, MD Date Time Electronically viewed and signed by .Suresh Valera MD, on 10/10/2016 17:27 .R/
[2016-10-10 17:45] LABS: %CREANATED RBC CSF 0 %; CSF COLOR COLORLESS; CSF VOLUME 9.3 ml; CSF#TUBE COUNT TUBE#3; CSF#TUBES REC'D 3
[2016-10-10 19:26] LABS: GLUCOSE,CSF 64 mg/dl (50-80)
--- NOTE | 2016-10-10 20:22 | PN ---
Date/Time of Note Date/Time of Note DATE: 10/10/16 TIME: 20:15 Assessment/Plan VTE Prophylaxis VTE Prophylaxis Intervention: other Lines/Catheters IV Catheter Type (from Nrsg): [place] Urinary Cath still in place: No Assessment/Plan Assessment/Plan - Severe headaches. None reported at present - Continue [place] and morphine for pain. - Possible normal pressure hydrocephalus. Continue to monitor neurological status. Dr. Hannon is following in urology consultation. Plan for LP to eval ICP. Dr. Anderson is following in neurosurgery consultation. - Right petrous apex lesion - Anemia of blood loss, stool for OB is positive. Status post blood transfusion. Continue to monitor hemoglobin and hematocrit. Dr. Dean is following in gastroenterology consultation. Dr. Cummins is asked to see patient in hematology consultation. -Multiple gastric and duodenal ulcers per EGD. Continue Protonix BID. - Hypertension, currently normotensive. Continue clonidine as needed. - Tobacco dependence, tobacco cessation is strongly advised. Further recommendations based on clinical course. Plan of care discussed with Dr. Aguilar. Exam/Review of Systems Vital Signs Vitals Vital Signs Date Time Temp Pulse Resp B/P Pulse Ox O2 Delivery O2 Flow Rate FiO2 10/10/16 17:10 98.7 88 18 131/76 92 Room Air 10/09/16 12:48 2.0 Intake and Output 10/09/16 10/09/16 10/10/16 15:00 23:00 07:00 Intake Total 350 ml 500 ml 300 ml Output Total 600 ml Balance 350 ml -100 ml 300 ml Results Result Diagram: 10/10/16 0455 10/10/16 0455 Results 24 hrs Laboratory Tests Test 10/10/16 04:55 10/10/16 15:00 White Blood Count 6.6 Red Blood Count 4.36 Hemoglobin 8.5 L Hematocrit 29.1 L Mean Corpuscular Volume 66.7 L Mean Corpuscular Hemoglobin 19.5 L Mean Corpuscular Hemoglobin Concent 29.2 L Red Cell Distribution Width 24.9 H Platelet Count 313 Mean Platelet Volume 9.9 Neutrophils % 73.4 Lymphocytes % 12.5 L Monocytes % 9.5 Eosinophils % 2.0 Basophils % 0.6 Nucleated Red Blood Cells % 0.3 H Neutrophils # 4.8 Lymphocytes # 0.8 Monocytes # 0.6 Eosinophils # 0.1 Basophils # 0.0 Nucleated Red Blood Cells # 0.0 Sodium Level 140 Potassium Level 3.8 Chloride Level 106 Carbon Dioxide Level 27 Anion Gap 11 Blood Urea Nitrogen 7 Creatinine 0.56 Glucose Level 80 Calcium Level 8.9 CSF Tubes Submitted 3 CSF Volume 9.3 CSF Appearance CLEAR CSF Color COLORLESS CSF WBC 2 CSF RBC 0 CSF Cell Count Tube # TUBE#3 CSF Total Cells Counted CSF Neutrophils % CSF Lymphocytes % CSF Monocytes % CSF Crenated Cells 0 CSF Comment CSF Glucose 64 CSF Total Protein 48 Medications Medications Current Medications Ondansetron HCl (Zofran Inj) 4 mg Q6H PRN IV NAUSEA AND/OR VOMITING; Start at 03:00 Acetaminophen (Tylenol Tab) 650 mg Q6H PRN PO PAIN LEVEL 1-3 OR FEVER; Start at 03:00 Morphine Sulfate (morphine) 2 mg Q4H PRN IV SEVERE PAIN LEVEL 7-10 Last administered on 10/10/16 16:17; Admin Dose 2 MG; Start 10/07/16 at 03:00 Docusate Sodium (Colace) 100 mg Q12H PRN PO CONSTIPATION; Start 10/07/16 at 03: 00 Magnesium Hydroxide (Milk Of Mag) 30 ml DAILY PRN PO CONSTIPATION; Start at 03:00 Sodium Biphosphate/ Sodium Phosphate (Fleet Enema) 133 ml DAILY PRN [place] CONSTIPATION; Start 10/07/16 at 03:00 Lorazepam (Ativan) 0.5 mg Q6H PRN IV ANXIETY; Start 10/07/16 at 03:00 Hydralazine HCl (Apresoline) 10 mg Q6H PRN IV ELEVATED BLOOD PRESSURE; Start at 03:00 Clonidine (Catapres) 0.1 mg Q6H PRN PO ELEVATED BLOOD PRESSURE; Start 10/07/16 at 03:00 Nitroglycerin (Nitroglycerin (Sl Tab) 0.4 Mg) 1 tab Q5M PRN SL ANGINA; Start at 03:00 Nicotine 1 patch 1 patch DAILY TRANSDERM Last administered on 10/10/16 09:09; Admin Dose 1 PATCH; Start 10/07/16 at 09:00 Ferric Sodium Gluconate Complex/ Sodium Chloride (Ferrlecit/NS) 110 ml @ 110 mls/hr Q24H IVPB Last administered on 10/10/16 11:37; Admin Dose 110 MLS/HR; Start 10/09/16 at 12:00; Stop 10/13/16 at 12:59 Naloxone HCl (Narcan) 0.2 mg PRN PRN IV DECREASED REPIRATORY RATE; Start at 12:30 Acetaminophen/ Codeine Phosphate (Tylenol No.3) 1 tab Q4H PRN PO PAIN LEVEL 1-5 ; Start 10/09/16 at 12:30 Acetaminophen/ Codeine Phosphate (Tylenol No.3) 2 tab Q4H PRN PO PAIN LEVEL 6- 10; Start 10/09/16 at 12:30 Pantoprazole (Protonix Tab) 40 mg BID PO Last administered on 10/10/16 09:09; Admin Dose 40 MG; Start 10/09/16 at 21:00 DIOGENES HUERTA Oct 10, 2016 20:22
[2016-10-10 20:24] VITALS: BP 126/74; RESP 20
[2016-10-11] MEDS: morphine 2 MG INJ IV PRN ×6 (01:13→21:20)
[2016-10-11 06:00] LABS: ADD SCAN DIFF NO
[2016-10-11 06:06] LABS: ABNORMAL IP MESSAGE 1; BASOPHIL # 0.1 10^3/ul (0.0-0.1); BASOPHILS % 0.8 % (0.0-2.0); EOSINOPHILS # 0.1 10^3/ul (0.0-0.5); EOSINOPHILS % 2.2 % (0.0-7.0); HEMATOCRIT 30.9 % (37.0-47.0); HEMOGLOBIN 8.6 g/dl (12.0-16.0); LYMPHOCYTES # 1.1 10^3/ul (0.8-2.9); LYMPHOCYTES % 18.1 % (15.0-51.0); MEAN CORPUSCULAR HGB CONC 27.8 g/dl (32.0-37.0); MEAN CORPUSCULAR VOLUME 68.4 fl (82.0-101.0); MEAN PLATELET VOLUME 9.9 fl (7.4-10.4); MONOCYTE # 0.7 10^3/ul (0.3-0.9); MONOCYTES % 10.9 % (0.0-11.0); NEUTROPHILS % 64.5 % (39.0-77.0); PLATELET COUNT 308 10^3/UL (140-415); RED BLOOD COUNT 4.52 10^6/ul (4.20-5.40); RED CELL DISTRIBUTION WIDTH 26.5 % (11.5-14.5); WHITE BLOOD COUNT 6.3 10^3/ul (4.8-10.8)
[2016-10-11 06:58] LABS: POTASSIUM 3.3 mmol/L (3.5-5.1)
[2016-10-11 07:01] LABS: CREATININE 0.73 mg/dl (0.44-1.00)
[2016-10-11 07:02] LABS: CALCIUM 8.5 mg/dl (8.4-10.2)
[2016-10-11] MEDS: PANTOPRAZOLE (EC) 40 MG TAB PO SCH ×2 (08:50→20:38)
[2016-10-11] MEDS: NICOTINE (14 MG/24 HR) PATCH TRANSDERM SCH (08:51)
[2016-10-11 09:00] VITALS: BP 140/91; PULSE 88; RESP 16
[2016-10-11] MEDS: SOD FERRIC GLUC COMPLX 125 MG in SOD CHLORIDE 0.9% 100 ML IVPB SCH (11:43)
[2016-10-11] MEDS: ONDANSETRON 4 MG INJ IV PRN (11:45)
--- NOTE | 2016-10-11 14:40 | CONS ---
Date/Time of Note Date/Time of Note DATE: 10/11/16 TIME: 14:38 Assessment/Plan Assessment/Plan Chief Complaint/Hosp Course Chief Complaint/Hosp Course 71 yo female admitted with headaches found with severe microcytic anemia. Problems: Additional Assessment/Plan #Microcytic Anemia, Hgb stable -pt appears to be iron deficient with a %sat 3 -Agree with GI consult. Multiple gastric and duodenal ulcers per EGD on . -will start IV iron x 5 days 10/09/16-10/13/16 -complete anemia workup. LDH WNL, haptoglobin pending; retic count inappropriately low; B12 normal albeit on lower end of normal, Folate WNL -will order Hb electrophoresis to r/o thalassemia (pending), epo level pending #Headaches -appreciate neurology and neurosurgery recs to r/o increased intracranial pressure -f/u results of LP Problems: Consultation Date/Type/Reason Admit Date/Time Oct 07, 2016 at 01:13 Initial Consult Date 10/08/16 Type of Consultation: Hematology Referring Provider: ROM CASTANEDA MD 24 HR Interval Summary Free Text/Dictation Patient complaining of abdominal pain for which she was admitted. Exam/Review of Systems Vital Signs Vitals Vital Signs Date Time Temp Pulse Resp B/P Pulse Ox O2 Delivery O2 Flow Rate FiO2 10/11/16 09:00 98.0 88 16 140/91 96 Room Air 10/09/16 12:48 2.0 Intake and Output 10/10/16 10/10/16 10/11/16 15:00 23:00 07:00 Intake Total 2090 ml 480 ml Balance 2090 ml 480 ml Exam Constitutional: alert, oriented Psych: anxiety, depression, no complaints Head: atraumatic, normocephalic Eyes: nl conjunctiva ENMT: nl external ears & nose Neck: non-tender, supple Respiratory: clear to auscultation, normal air movement Cardiovascular: nl pulses, regular rate and rhythm Gastrointestinal: soft Musculoskeletal: nl extremities to inspection, nl gait and stance Results Result Diagram: 10/11/16 0455 10/11/16 0455 Results 24 hrs Laboratory Tests Test 10/10/16 15:00 10/11/16 04:55 CSF Tubes Submitted 3 CSF Volume 9.3 CSF Appearance CLEAR CSF Color COLORLESS CSF WBC 2 CSF RBC 0 CSF Cell Count Tube # TUBE#3 CSF Total Cells Counted CSF Neutrophils % CSF Lymphocytes % CSF Monocytes % CSF Crenated Cells 0 CSF Comment CSF Glucose 64 CSF Total Protein 48 White Blood Count 6.3 Red Blood Count 4.52 Hemoglobin 8.6 L Hematocrit 30.9 L Mean Corpuscular Volume 68.4 L Mean Corpuscular Hemoglobin 19.0 L Mean Corpuscular Hemoglobin Concent 27.8 L Red Cell Distribution Width 26.5 H Platelet Count 308 Mean Platelet Volume 9.9 Neutrophils % 64.5 Lymphocytes % 18.1 Monocytes % 10.9 Eosinophils % 2.2 Basophils % 0.8 Nucleated Red Blood Cells % 0.0 Neutrophils # 4.0 Lymphocytes # 1.1 Monocytes # 0.7 Eosinophils # 0.1 Basophils # 0.1 Nucleated Red Blood Cells # 0.0 Sodium Level 142 Potassium Level 3.3 L Chloride Level 106 Carbon Dioxide Level 26 Anion Gap 13 Blood Urea Nitrogen 8 Creatinine 0.73 Glucose Level 107 Calcium Level 8.5 Ferritin 154.0 Medications Medications Current Medications Ondansetron HCl (Zofran Inj) 4 mg Q6H PRN IV NAUSEA AND/OR VOMITING Last administered on 10/11/16 11:45; Admin Dose 4 MG; Start 10/07/16 at 03:00 Acetaminophen (Tylenol Tab) 650 mg Q6H PRN PO PAIN LEVEL 1-3 OR FEVER; Start at 03:00 Morphine Sulfate (morphine) 2 mg Q4H PRN IV SEVERE PAIN LEVEL 7-10 Last administered on 10/11/16 12:57; Admin Dose 2 MG; Start 10/07/16 at 03:00 Docusate Sodium (Colace) 100 mg Q12H PRN PO CONSTIPATION; Start 10/07/16 at 03: 00 Magnesium Hydroxide (Milk Of Mag) 30 ml DAILY PRN PO CONSTIPATION; Start at 03:00 Sodium Biphosphate/ Sodium Phosphate (Fleet Enema) 133 ml DAILY PRN [place] CONSTIPATION; Start 10/07/16 at 03:00 Lorazepam (Ativan) 0.5 mg Q6H PRN IV ANXIETY; Start 10/07/16 at 03:00 Hydralazine HCl (Apresoline) 10 mg Q6H PRN IV ELEVATED BLOOD PRESSURE; Start at 03:00 Clonidine (Catapres) 0.1 mg Q6H PRN PO ELEVATED BLOOD PRESSURE; Start 10/07/16 at 03:00 Nitroglycerin (Nitroglycerin (Sl Tab) 0.4 Mg) 1 tab Q5M PRN SL ANGINA; Start at 03:00 Nicotine 1 patch 1 patch DAILY TRANSDERM Last administered on 10/11/16 08:51; Admin Dose 1 PATCH; Start 10/07/16 at 09:00 Ferric Sodium Gluconate Complex/ Sodium Chloride (Ferrlecit/NS) 110 ml @ 110 mls/hr Q24H IVPB Last administered on 10/11/16 11:43; Admin Dose 110 MLS/HR; Start 10/09/16 at 12:00; Stop 10/13/16 at 12:59 Naloxone HCl (Narcan) 0.2 mg PRN PRN IV DECREASED REPIRATORY RATE; Start at 12:30 Acetaminophen/ Codeine Phosphate (Tylenol No.3) 1 tab Q4H PRN PO PAIN LEVEL 1-5 ; Start 10/09/16 at 12:30 Acetaminophen/ Codeine Phosphate (Tylenol No.3) 2 tab Q4H PRN PO PAIN LEVEL 6- 10; Start 10/09/16 at 12:30 Pantoprazole (Protonix Tab) 40 mg BID PO Last administered on 10/11/16 08:50; Admin Dose 40 MG; Start 10/09/16 at 21:00 FRANKIE HODGE MD Oct 11, 2016 14:40
[2016-10-11] MEDS ORDERED: POTASSIUM CHLORIDE (SR) 10 MEQ TAB PO ONE (15:00)
[2016-10-11] MEDS ORDERED: morphine 2 MG INJ IV ONE (15:00)
--- NOTE | 2016-10-11 19:03 | PN ---
Date/Time of Note Date/Time of Note DATE: 10/11/16 TIME: 19:00 Assessment/Plan VTE Prophylaxis VTE Prophylaxis Intervention: SCD's Lines/Catheters [facility] Saline [facility] Urinary Cath still in place: No Assessment/Plan Chief Complaint/Hosp Course Assessment/Plan - Severe headaches. Continue [place] and morphine for pain. - Possible normal pressure hydrocephalus. Continue to monitor neurological status. Dr. Hannon is following in urology consultation. S/p LP with normal ICP. Dr. Anderson is following in neurosurgery consultation. - Right petrous apex lesion - Anemia of blood loss, stool for OB is positive. Status post blood transfusion. Continue to monitor hemoglobin and hematocrit. Dr. Dean is following in gastroenterology consultation. Dr. Cummins is asked to see patient in hematology consultation. - Multiple gastric and duodenal ulcers per EGD. Continue Protonix BID. - Hypertension, currently normotensive. Continue clonidine as needed. - Tobacco dependence, tobacco cessation is strongly advised. Further recommendations based on clinical course. Plan of care discussed with Dr. Aguilar. Problems: Subjective 24 Hr Interval Summary Free Text/Dictation Patient denies any headache, complaints of abdominal pain, denies nausea vomiting, able to tolerate diet well. Exam/Review of Systems Vital Signs Vitals Vital Signs Date Time Temp Pulse Resp B/P Pulse Ox O2 Delivery O2 Flow Rate FiO2 10/11/16 09:00 98.0 88 16 140/91 96 Room Air 10/09/16 12:48 2.0 Intake and Output 10/10/16 10/10/16 10/11/16 14:59 22:59 06:59 Intake Total 2090 ml 480 ml Balance 2090 ml 480 ml Exam Constitutional: alert, oriented Psych: no complaints Head: atraumatic, normocephalic Eyes: nl conjunctiva ENMT: nl external ears & nose Neck: supple Respiratory: clear to auscultation, normal air movement Cardiovascular: nl pulses, regular rate and rhythm Gastrointestinal: non-tender, soft Genitourinary - Female: nl adnexae Musculoskeletal: nl extremities to inspection Extremities: normal pulses Neurological: THROUGH OPERATOR II-XII intact Skin: nl turgor Results Result Diagram: 10/11/165 10/11/16 0455 Results 24 hrs Laboratory Tests Test 10/11/16 04:55 White Blood Count 6.3 Red Blood Count 4.52 Hemoglobin 8.6 L Hematocrit 30.9 L Mean Corpuscular Volume 68.4 L Mean Corpuscular Hemoglobin 19.0 L Mean Corpuscular Hemoglobin Concent 27.8 L Red Cell Distribution Width 26.5 H Platelet Count 308 Mean Platelet Volume 9.9 Neutrophils % 64.5 Lymphocytes % 18.1 Monocytes % 10.9 Eosinophils % 2.2 Basophils % 0.8 Nucleated Red Blood Cells % 0.0 Neutrophils # 4.0 Lymphocytes # 1.1 Monocytes # 0.7 Eosinophils # 0.1 Basophils # 0.1 Nucleated Red Blood Cells # 0.0 Sodium Level 142 Potassium Level 3.3 L Chloride Level 106 Carbon Dioxide Level 26 Anion Gap 13 Blood Urea Nitrogen 8 Creatinine 0.73 Glucose Level 107 Calcium Level 8.5 Ferritin 154.0 Medications Medications Current Medications Ondansetron HCl (Zofran Inj) 4 mg Q6H PRN IV NAUSEA AND/OR VOMITING Last administered on 10/11/16 11:45; Admin Dose 4 MG; Start 10/07/16 at 03:00 Acetaminophen (Tylenol Tab) 650 mg Q6H PRN PO PAIN LEVEL 1-3 OR FEVER; Start at 03:00 Morphine Sulfate (morphine) 2 mg Q4H PRN IV SEVERE PAIN LEVEL 7-10 Last administered on 10/11/16 16:58; Admin Dose 2 MG; Start 10/07/16 at 03:00 Docusate Sodium (Colace) 100 mg Q12H PRN PO CONSTIPATION; Start 10/07/16 at 03: 00 Magnesium Hydroxide (Milk Of Mag) 30 ml DAILY PRN PO CONSTIPATION; Start at 03:00 Sodium Biphosphate/ Sodium Phosphate (Fleet Enema) 133 ml DAILY PRN [place] CONSTIPATION; Start 10/07/16 at 03:00 Lorazepam (Ativan) 0.5 mg Q6H PRN IV ANXIETY; Start 10/07/16 at 03:00 Hydralazine HCl (Apresoline) 10 mg Q6H PRN IV ELEVATED BLOOD PRESSURE; Start at 03:00 Clonidine (Catapres) 0.1 mg Q6H PRN PO ELEVATED BLOOD PRESSURE; Start 10/07/16 at 03:00 Nitroglycerin (Nitroglycerin (Sl Tab) 0.4 Mg) 1 tab Q5M PRN SL ANGINA; Start at 03:00 Nicotine 1 patch 1 patch DAILY TRANSDERM Last administered on 10/11/16 08:51; Admin Dose 1 PATCH; Start 10/07/16 at 09:00 Ferric Sodium Gluconate Complex/ Sodium Chloride (Ferrlecit/NS) 110 ml @ 110 mls/hr Q24H IVPB Last administered on 10/11/16 11:43; Admin Dose 110 MLS/HR; Start 10/09/16 at 12:00; Stop 10/13/16 at 12:59 Naloxone HCl (Narcan) 0.2 mg PRN PRN IV DECREASED REPIRATORY RATE; Start at 12:30 Pantoprazole (Protonix Tab) 40 mg BID PO Last administered on 10/11/16 08:50; Admin Dose 40 MG; Start 10/09/16 at 21:00 TAYA SANFORD Oct 11, 2016 19:03
--- NOTE | 2016-10-11 19:20 | PN ---
DATE: SUBJECTIVE: The patient at this time is not having any significant abdominal pain. No history of n ausea, vomiting. The patient admitted with severe anemia, hemoglobin below 9 grams and then she got transfused. Upper endoscopy showed evidence of multiple duodenal ulcers and biopsy was done. Biopsy of the stomach for H. pylori was negative. The hemoglobin is improved now. The patient continues to have issues with headache, which is being investigated by the primary doctor. The patient refused to have colonoscopy preparation. CLINICAL IMPRESSION: 1. Severe anemia. 2. History of ulcer disease in the duodenum. Serum gastrin was ordered, the results are pending. PLAN: 1. Recommend to follow the serum gastrin level. 2. Continue proton pump inhibitor therapy. 3. Repeat upper endoscopy in 2 months. 4. Recommend a colonoscopy. Dictated By: EVELYNE RAZO MD NC/NTS Conf#: [id number] DID#: [id number] CC: EVELYNE RAZO MD;*EndCC*
[2016-10-11 21:41] VITALS: BP 123/67; RESP 18
[2016-10-12] MEDS: morphine 2 MG INJ IV PRN ×6 (02:17→23:06)
[2016-10-12] MEDS: ONDANSETRON 4 MG INJ IV PRN (06:29)
[2016-10-12 08:21] VITALS: BP 142/82; PULSE 83; RESP 19
[2016-10-12] MEDS: NICOTINE (14 MG/24 HR) PATCH TRANSDERM SCH (09:00)
[2016-10-12] MEDS: PANTOPRAZOLE (EC) 40 MG TAB PO SCH ×2 (09:14→20:59)
[2016-10-12] MEDS: SOD FERRIC GLUC COMPLX 125 MG in SOD CHLORIDE 0.9% 100 ML IVPB SCH (11:53)
--- NOTE | 2016-10-12 12:08 | PN ---
Date/Time of Note Date/Time of Note DATE: 10/12/16 TIME: 12:05 Assessment/Plan VTE Prophylaxis VTE Prophylaxis Intervention: ambulation Lines/Catheters IV Catheter Type (from Nrs): [place]ine [place] Urinary Cath still in place: No Assessment/Plan Assessment/Plan 71 yo female admitted with headaches found with severe microcytic anemia. Problems: Additional Assessment/Plan #Microcytic Anemia, Hgb stable -pt appears to be iron deficient with a %sat 3 -Multiple gastric and duodenal ulcers per EGD on 10/09/16. -on IV iron x 5 days 10/09/16-10/13/16 -complete anemia workup. LDH WNL, haptoglobin pending; retic count inappropriately low; B12 normal albeit on lower end of normal, Folate WNL -normal Hb electrophoresis to r/o thalassemia, epo level appropriate BM response. #Headaches -appreciate neurology and neurosurgery recs Subjective 24 Hr Interval Summary Constitutional: no complaints Gastrointestinal: no complaints Neurologic: headache Exam/Review of Systems Vital Signs Vitals Vital Signs Date Time Temp Pulse Resp B/P Pulse Ox O2 Delivery O2 Flow Rate FiO2 10/12/16 08:21 98.2 83 19 142/82 90 Room Air 10/09/16 12:48 2.0 Intake and Output 10/11/16 10/11/16 10/12/16 15:00 23:00 07:00 Intake Total 110 ml 780 ml 480 ml Balance 110 ml 780 ml 480 ml Exam Constitutional: alert, oriented Psych: nl mood/affect Eyes: nl conjunctiva Respiratory: normal air movement Gastrointestinal: soft Results Result Diagram: 10/11/16 0455 10/11/16 0455 Medications Medications Current Medications Ondansetron HCl (Zofran Inj) 4 mg Q6H PRN IV NAUSEA AND/OR VOMITING Last administered on 10/12/16 06:29; Admin Dose 4 MG; Start 10/07/16 at 03:00 Acetaminophen (Tylenol Tab) 650 mg Q6H PRN PO PAIN LEVEL 1-3 OR FEVER; Start at 03:00 Morphine Sulfate (morphine) 2 mg Q4H PRN IV SEVERE PAIN LEVEL 7-10 Last administered on 10/12/16 10:28; Admin Dose 2 MG; Start 10/07/16 at 03:00 Docusate Sodium (Colace) 100 mg Q12H PRN PO CONSTIPATION; Start 10/07/16 at 03: 00 Magnesium Hydroxide (Milk Of Mag) 30 ml DAILY PRN PO CONSTIPATION; Start at 03:00 Sodium Biphosphate/ Sodium Phosphate (Fleet Enema) 133 ml DAILY PRN [place] CONSTIPATION; Start 10/07/16 at 03:00 Lorazepam (Ativan) 0.5 mg Q6H PRN IV ANXIETY; Start 10/07/16 at 03:00 Hydralazine HCl (Apresoline) 10 mg Q6H PRN IV ELEVATED BLOOD PRESSURE; Start at 03:00 Clonidine (Catapres) 0.1 mg Q6H PRN PO ELEVATED BLOOD PRESSURE; Start 10/07/16 at 03:00 Nitroglycerin (Nitroglycerin (Sl Tab) 0.4 Mg) 1 tab Q5M PRN SL ANGINA; Start at 03:00 Nicotine 1 patch 1 patch DAILY TRANSDERM Last administered on 10/11/16 08:51; Admin Dose 1 PATCH; Start 10/07/16 at 09:00 Ferric Sodium Gluconate Complex/ Sodium Chloride (Ferrlecit/NS) 110 ml @ 110 mls/hr Q24H IVPB Last administered on 10/12/16 11:53; Admin Dose 110 MLS/HR; Start 10/09/16 at 12:00; Stop 10/13/16 at 12:59 Naloxone HCl (Narcan) 0.2 mg PRN PRN IV DECREASED REPIRATORY RATE; Start at 12:30 Pantoprazole (Protonix Tab) 40 mg BID PO Last administered on 10/12/16 09:14; Admin Dose 40 MG; Start 10/09/16 at 21:00 MARIXA BOO MD Oct 12, 2016 12:08
[2016-10-12 13:32] LABS: ADD SCAN DIFF NO
[2016-10-12 13:37] LABS: BASOPHILS % 0.8 % (0.0-2.0); EOSINOPHILS % 2.7 % (0.0-7.0); HEMOGLOBIN 9.5 g/dl (12.0-16.0); LYMPHOCYTES % 20.8 % (15.0-51.0); MEAN CORPUSCULAR HEMOGLOBIN 19.2 pg (29.0-33.0); MEAN CORPUSCULAR HGB CONC 27.1 g/dl (32.0-37.0); MEAN CORPUSCULAR VOLUME 70.7 fl (82.0-101.0); MEAN PLATELET VOLUME 9.9 fl (7.4-10.4); NEUTROPHIL # 4.5 10^3/ul (1.6-7.5); NEUTROPHILS % 62.7 % (39.0-77.0); PLATELET COUNT 317 10^3/UL (140-415); RED BLOOD COUNT 4.95 10^6/ul (4.20-5.40); WHITE BLOOD COUNT 7.2 10^3/ul (4.8-10.8)
[2016-10-12 13:38] LABS: ABNORMAL IP MESSAGE 1; BASOPHIL # 0.1 10^3/ul (0.0-0.1); EOSINOPHILS # 0.2 10^3/ul (0.0-0.5); LYMPHOCYTES # 1.5 10^3/ul (0.8-2.9); MONOCYTE # 0.8 10^3/ul (0.3-0.9)
[2016-10-12 13:50] LABS: POTASSIUM 3.9 mmol/L (3.5-5.1)
[2016-10-12 13:52] LABS: CREATININE 0.79 mg/dl (0.44-1.00)
[2016-10-12 13:53] LABS: CALCIUM 8.6 mg/dl (8.4-10.2)
--- NOTE | 2016-10-12 17:49 | PN ---
Date/Time of Note Date/Time of Note DATE: 10/12/16 TIME: 17:47 Assessment/Plan Lines/Catheters IV Catheter Type (from Nrsg): [place]ine [place] Urinary Cath still in place: No Assessment/Plan Assessment/Plan - Severe headaches. Continue [place] and morphine for pain. - Possible normal pressure hydrocephalus. Continue to monitor neurological status. Dr. Hannon is following in urology consultation. S/p LP with normal ICP. Dr. Anderson is following in neurosurgery consultation. - Right petrous apex lesion - Anemia of blood loss, stool for OB is positive. Status post blood transfusion. Continue to monitor hemoglobin and hematocrit. Dr. Dean is following in gastroenterology consultation. Dr. Cummins is asked to see patient in hematology consultation. - Multiple gastric and duodenal ulcers per EGD. Continue Protonix BID. - Hypertension, currently normotensive. Continue clonidine as needed. - Tobacco dependence, tobacco cessation is strongly advised. Further recommendations based on clinical course. Plan of care discussed with Dr. Aguilar. Subjective 24 Hr Interval Summary Free Text/Dictation nad,having dinner, feeling better dw staff. Eyes: no complaints ENT: no complaints Respiratory: no complaints Cardiovascular: no complaints Gastrointestinal: no complaints Genitourinary: no complaints Musculoskeletal: no complaints Skin: no complaints Neurologic: no complaints Endocrine: no complaints Lymphatic: no complaints Psychological: no complaints Immunologic: no complaints Exam/Review of Systems Vital Signs Vitals Vital Signs Date Time Temp Pulse Resp B/P Pulse Ox O2 Delivery O2 Flow Rate FiO2 10/12/16 08:21 98.2 83 19 142/82 90 Room Air 10/09/16 12:48 2.0 Intake and Output 10/11/16 10/11/16 10/12/16 14:59 22:59 06:59 Intake Total 110 ml 780 ml 480 ml Balance 110 ml 780 ml 480 ml Exam Constitutional: alert, oriented Psych: nl mood/affect Eyes: EOMI, nl sclera ENMT: nl external ears & nose Neck: non-tender Respiratory: clear to auscultation Cardiovascular: nl pulses Gastrointestinal: non-tender, soft Musculoskeletal: nl extremities to inspection Extremities: normal pulses Neurological: nl mental status, nl speech Skin: nl turgor Lymph: nontender Results Result Diagram: 10/12/16 1315 10/12/16 1315 Results 24 hrs Laboratory Tests Test 10/12/16 13:15 White Blood Count 7.2 Red Blood Count 4.95 Hemoglobin 9.5 L Hematocrit 35.0 L Mean Corpuscular Volume 70.7 L Mean Corpuscular Hemoglobin 19.2 L Mean Corpuscular Hemoglobin Concent 27.1 L Red Cell Distribution Width 28.0 H Platelet Count 317 Mean Platelet Volume 9.9 Neutrophils % 62.7 Lymphocytes % 20.8 Monocytes % 11.0 Eosinophils % 2.7 Basophils % 0.8 Nucleated Red Blood Cells % 0.0 Neutrophils # 4.5 Lymphocytes # 1.5 Monocytes # 0.8 Eosinophils # 0.2 Basophils # 0.1 Nucleated Red Blood Cells # 0.0 Sodium Level 138 Potassium Level 3.9 Chloride Level 107 Carbon Dioxide Level 24 Anion Gap 11 Blood Urea Nitrogen 11 Creatinine 0.79 Glucose Level 121 Calcium Level 8.6 Medications Medications Current Medications Ondansetron HCl (Zofran Inj) 4 mg Q6H PRN IV NAUSEA AND/OR VOMITING Last administered on 10/12/16 06:29; Admin Dose 4 MG; Start 10/07/16 at 03:00 Acetaminophen (Tylenol Tab) 650 mg Q6H PRN PO PAIN LEVEL 1-3 OR FEVER; Start at 03:00 Morphine Sulfate (morphine) 2 mg Q4H PRN IV SEVERE PAIN LEVEL 7-10 Last administered on 10/12/16 14:32; Admin Dose 2 MG; Start 10/07/16 at 03:00 Docusate Sodium (Colace) 100 mg Q12H PRN PO CONSTIPATION; Start 10/07/16 at 03: 00 Magnesium Hydroxide (Milk Of Mag) 30 ml DAILY PRN PO CONSTIPATION; Start at 03:00 Sodium Biphosphate/ Sodium Phosphate (Fleet Enema) 133 ml DAILY PRN [place] CONSTIPATION; Start 10/07/16 at 03:00 Lorazepam (Ativan) 0.5 mg Q6H PRN IV ANXIETY; Start 10/07/16 at 03:00 Hydralazine HCl (Apresoline) 10 mg Q6H PRN IV ELEVATED BLOOD PRESSURE; Start at 03:00 Clonidine (Catapres) 0.1 mg Q6H PRN PO ELEVATED BLOOD PRESSURE; Start 10/07/16 at 03:00 Nitroglycerin (Nitroglycerin (Sl Tab) 0.4 Mg) 1 tab Q5M PRN SL ANGINA; Start at 03:00 Nicotine 1 patch 1 patch DAILY TRANSDERM Last administered on 10/11/16 08:51; Admin Dose 1 PATCH; Start 10/07/16 at 09:00 Ferric Sodium Gluconate Complex/ Sodium Chloride (Ferrlecit/NS) 110 ml @ 110 mls/hr Q24H IVPB Last administered on 10/12/16 11:53; Admin Dose 110 MLS/HR; Start 10/09/16 at 12:00; Stop 10/13/16 at 12:59 Naloxone HCl (Narcan) 0.2 mg PRN PRN IV DECREASED REPIRATORY RATE; Start at 12:30 Pantoprazole (Protonix Tab) 40 mg BID PO Last administered on 10/12/16 09:14; Admin Dose 40 MG; Start 10/09/16 at 21:00 DIOGENES HUERTA Oct 12, 2016 17:49
[2016-10-12 20:09] VITALS: BP 149/96; RESP 18
[2016-10-13] MEDS: morphine 2 MG INJ IV PRN ×5 (03:06→19:54)
[2016-10-13 08:49] VITALS: BP 150/82; RESP 18
[2016-10-13] MEDS: NICOTINE (14 MG/24 HR) PATCH TRANSDERM SCH (09:00)
[2016-10-13 09:09] LABS: ADD SCAN DIFF NO
[2016-10-13 09:20] LABS: ABNORMAL IP MESSAGE 1; BASOPHILS % 0.6 % (0.0-2.0); EOSINOPHILS # 0.2 10^3/ul (0.0-0.5); EOSINOPHILS % 2.9 % (0.0-7.0); HEMATOCRIT 33.1 % (37.0-47.0); HEMOGLOBIN 9.1 g/dl (12.0-16.0); LYMPHOCYTES # 0.9 10^3/ul (0.8-2.9); LYMPHOCYTES % 14.5 % (15.0-51.0); MEAN CORPUSCULAR HEMOGLOBIN 19.7 pg (29.0-33.0); MEAN CORPUSCULAR HGB CONC 27.5 g/dl (32.0-37.0); MEAN CORPUSCULAR VOLUME 71.8 fl (82.0-101.0); MEAN PLATELET VOLUME 9.2 fl (7.4-10.4); MONOCYTE # 0.6 10^3/ul (0.3-0.9); MONOCYTES % 9.7 % (0.0-11.0); NEUTROPHIL # 4.4 10^3/ul (1.6-7.5); NEUTROPHILS % 70.4 % (39.0-77.0); PLATELET COUNT 275 10^3/UL (140-415); RED BLOOD COUNT 4.61 10^6/ul (4.20-5.40); RED CELL DISTRIBUTION WIDTH 28.3 % (11.5-14.5); WHITE BLOOD COUNT 6.3 10^3/ul (4.8-10.8)
[2016-10-13 09:41] LABS: CALCIUM 8.7 mg/dl (8.4-10.2)
--- NOTE | 2016-10-13 09:42 | PN ---
DATE: 10/12/2016 This patient is complaining of progressive abdominal pain but vital signs are stable. No active signs of gi bleeding. She has been diagnosed to have ulcer disease. She is on therapy. She is asking for more narcotics like morphine. I spoke with the patient and the family indicating the nausea that she is feeling may be even secondary to morphine derivatives. She is also constipated. Thus, I have advised Dulcolax tablets. Advised to reduce the morphine rather than increasing. She will be seen by the primary MD for further management of her pain. Meanwhile she will be observed in the hospital. Further therapies will be continued even as outpatient. Await for biopsy report done by Dr. Dean. If H. pylori positive, patient may require true antibiotics. Dictated By: MARITA BUSTOS Conf#: [id number] DID#: [id number] MTDD
[2016-10-13 09:48] LABS: CREATININE 0.76 mg/dl (0.44-1.00)
[2016-10-13] MEDS: PANTOPRAZOLE (EC) 40 MG TAB PO SCH ×2 (10:12→20:38)
[2016-10-13] MEDS: SOD FERRIC GLUC COMPLX 125 MG in SOD CHLORIDE 0.9% 100 ML IVPB SCH (11:22)
--- NOTE | 2016-10-13 11:41 | PN ---
Date/Time of Note Date/Time of Note DATE: 10/13/16 TIME: 11:38 Assessment/Plan VTE Prophylaxis VTE Prophylaxis Intervention: other Lines/Catheters IV Catheter Type (from Nrs): [place] Urinary Cath still in place: No Assessment/Plan Assessment/Plan - Severe headaches. Continue [place] and morphine for pain. - Possible normal pressure hydrocephalus. Continue to monitor neurological status. Dr. Hannon is following in urology consultation. S/p LP with normal ICP. Dr. Anderson is following in neurosurgery consultation. - Right petrous apex lesion - Anemia of blood loss, stool for OB is positive. Status post blood transfusion. Continue to monitor hemoglobin and hematocrit. Dr. Dean is following in gastroenterology consultation. Dr. Cummins is asked to see patient in hematology consultation. - Multiple gastric and duodenal ulcers per EGD. Continue Protonix BID. - Hypertension, currently normotensive. Continue clonidine as needed. - Tobacco dependence, tobacco cessation is strongly advised. Further recommendations based on clinical course. Plan of care discussed with Dr. Aguilar. Subjective 24 Hr Interval Summary Free Text/Dictation NAD, c/o headache earlier, better now. Denies nausea/ vomitting diet advanced to soft diet. dw staff. Eyes: no complaints ENT: no complaints Cardiovascular: no complaints Gastrointestinal: no complaints Genitourinary: no complaints Skin: no complaints Neurologic: headache Exam/Review of Systems Vital Signs Vitals Vital Signs Date Time Temp Pulse Resp B/P Pulse Ox O2 Delivery O2 Flow Rate FiO2 10/13/16 08:49 98.3 81 18 150/82 97 10/12/16 08:21 Room Air 10/09/16 12:48 2.0 Intake and Output 10/12/16 10/12/16 10/13/16 15:00 23:00 07:00 Intake Total 110 ml 700 ml 400 ml Balance 110 ml 700 ml 400 ml Exam Constitutional: alert, oriented, well developed Psych: no complaints Head: atraumatic Eyes: EOMI ENMT: nl external ears & nose Neck: non-tender Respiratory: clear to auscultation Cardiovascular: nl pulses Gastrointestinal: non-tender, soft Musculoskeletal: nl extremities to inspection Extremities: normal pulses Neurological: nl mental status, nl speech Skin: nl turgor Results Result Diagram: 10/13/16 0857 10/13/16 0857 Results 24 hrs Laboratory Tests Test 10/12/16 13:15 10/13/16 07:10 10/13/16 08:57 White Blood Count 7.2 6.3 Red Blood Count 4.95 4.61 Hemoglobin 9.5 L 9.1 L Hematocrit 35.0 L 33.1 L Mean Corpuscular Volume 70.7 L 71.8 L Mean Corpuscular Hemoglobin 19.2 L 19.7 L Mean Corpuscular Hemoglobin Concent 27.1 L 27.5 L Red Cell Distribution Width 28.0 H 28.3 H Platelet Count 317 275 Mean Platelet Volume 9.9 9.2 Neutrophils % 62.7 70.4 Lymphocytes % 20.8 14.5 L Monocytes % 11.0 9.7 Eosinophils % 2.7 2.9 Basophils % 0.8 0.6 Nucleated Red Blood Cells % 0.0 0.0 Neutrophils # 4.5 4.4 Lymphocytes # 1.5 0.9 Monocytes # 0.8 0.6 Eosinophils # 0.2 0.2 Basophils # 0.1 0.0 Nucleated Red Blood Cells # 0.0 0.0 Sodium Level 138 140 Potassium Level 3.9 4.0 Chloride Level 107 107 Carbon Dioxide Level 24 26 Anion Gap 11 11 Blood Urea Nitrogen 11 11 Creatinine 0.79 0.76 Glucose Level 121 113 Calcium Level 8.6 8.7 Stool Occult Blood POSITIVE Medications Medications Current Medications Ondansetron HCl (Zofran Inj) 4 mg Q6H PRN IV NAUSEA AND/OR VOMITING Last administered on 10/12/16 06:29; Admin Dose 4 MG; Start 10/07/16 at 03:00 Acetaminophen (Tylenol Tab) 650 mg Q6H PRN PO PAIN LEVEL 1-3 OR FEVER; Start at 03:00 Morphine Sulfate (morphine) 2 mg Q4H PRN IV SEVERE PAIN LEVEL 7-10 Last administered on 10/13/16 11:22; Admin Dose 2 MG; Start 10/07/16 at 03:00 Docusate Sodium (Colace) 100 mg Q12H PRN PO CONSTIPATION; Start 10/07/16 at 03: 00 Magnesium Hydroxide (Milk Of Mag) 30 ml DAILY PRN PO CONSTIPATION; Start at 03:00 Sodium Biphosphate/ Sodium Phosphate (Fleet Enema) 133 ml DAILY PRN [place] CONSTIPATION; Start 10/07/16 at 03:00 Lorazepam (Ativan) 0.5 mg Q6H PRN IV ANXIETY; Start 10/07/16 at 03:00 Hydralazine HCl (Apresoline) 10 mg Q6H PRN IV ELEVATED BLOOD PRESSURE; Start at 03:00 Clonidine (Catapres) 0.1 mg Q6H PRN PO ELEVATED BLOOD PRESSURE; Start 10/07/16 at 03:00 Nitroglycerin (Nitroglycerin (Sl Tab) 0.4 Mg) 1 tab Q5M PRN SL ANGINA; Start at 03:00 Nicotine 1 patch 1 patch DAILY TRANSDERM Last administered on 10/11/16 08:51; Admin Dose 1 PATCH; Start 10/07/16 at 09:00 Ferric Sodium Gluconate Complex/ Sodium Chloride (Ferrlecit/NS) 110 ml @ 110 mls/hr Q24H IVPB Last administered on 10/13/16 11:22; Admin Dose 110 MLS/HR; Start 10/09/16 at 12:00; Stop 10/13/16 at 12:59 Naloxone HCl (Narcan) 0.2 mg PRN PRN IV DECREASED REPIRATORY RATE; Start at 12:30 Pantoprazole (Protonix Tab) 40 mg BID PO Last administered on 10/13/16 10:12; Admin Dose 40 MG; Start 10/09/16 at 21:00 DIOGENES HUERTA Oct 13, 2016 11:41
--- NOTE | 2016-10-13 19:54 | PN ---
Date/Time of Note Date/Time of Note DATE: 10/13/16 TIME: 19:51 Assessment/Plan VTE Prophylaxis VTE Prophylaxis Intervention: contraindicated Lines/Catheters IV Catheter Type (from Nrsg): Saline Lock Urinary Cath still in place: No Subjective 24 Hr Interval Summary Gastrointestinal: nausea (no signs of gi bleeding), pain Exam/Review of Systems Vital Signs Vitals Vital Signs Date Time Temp Pulse Resp B/P Pulse Ox O2 Delivery O2 Flow Rate FiO2 10/13/16 08:49 98.3 81 18 150/82 97 10/12/16 08:21 Room Air 10/09/16 12:48 2.0 Intake and Output 10/12/16 10/12/16 10/13/16 15:00 23:00 07:00 Intake Total 110 ml 700 ml 400 ml Balance 110 ml 700 ml 400 ml Results Result Diagram: 10/13/16 0857 10/13/16 0857 Results 24 hrs Laboratory Tests Test 10/13/16 07:10 10/13/16 08:57 Stool Occult Blood POSITIVE White Blood Count 6.3 Red Blood Count 4.61 Hemoglobin 9.1 L Hematocrit 33.1 L Mean Corpuscular Volume 71.8 L Mean Corpuscular Hemoglobin 19.7 L Mean Corpuscular Hemoglobin Concent 27.5 L Red Cell Distribution Width 28.3 H Platelet Count 275 Mean Platelet Volume 9.2 Neutrophils % 70.4 Lymphocytes % 14.5 L Monocytes % 9.7 Eosinophils % 2.9 Basophils % 0.6 Nucleated Red Blood Cells % 0.0 Neutrophils # 4.4 Lymphocytes # 0.9 Monocytes # 0.6 Eosinophils # 0.2 Basophils # 0.0 Nucleated Red Blood Cells # 0.0 Sodium Level 140 Potassium Level 4.0 Chloride Level 107 Carbon Dioxide Level 26 Anion Gap 11 Blood Urea Nitrogen 11 Creatinine 0.76 Glucose Level 113 Calcium Level 8.7 Medications Medications Current Medications Ondansetron HCl (Zofran Inj) 4 mg Q6H PRN IV NAUSEA AND/OR VOMITING Last administered on 10/12/16t 06:29; Admin Dose 4 MG; Start 10/07/16 at 03:00 Acetaminophen (Tylenol Tab) 650 mg Q6H PRN PO PAIN LEVEL 1-3 OR FEVER; Start at 03:00 Morphine Sulfate (morphine) 2 mg Q4H PRN IV SEVERE PAIN LEVEL 7-10 Last administered on 10/13/16 15:14; Admin Dose 2 MG; Start 10/07/16 at 03:00 Docusate Sodium (Colace) 100 mg Q12H PRN PO CONSTIPATION; Start 10/07/16 at 03: 00 Magnesium Hydroxide (Milk Of Mag) 30 ml DAILY PRN PO CONSTIPATION; Start at 03:00 Sodium Biphosphate/ Sodium Phosphate (Fleet Enema) 133 ml DAILY PRN AR CONSTIPATION; Start 10/07/16 at 03:00 Lorazepam (Ativan) 0.5 mg Q6H PRN IV ANXIETY; Start 10/07/16 at 03:00 Hydralazine HCl (Apresoline) 10 mg Q6H PRN IV ELEVATED BLOOD PRESSURE; Start at 03:00 Clonidine (Catapres) 0.1 mg Q6H PRN PO ELEVATED BLOOD PRESSURE; Start 10/07/16 at 03:00 Nitroglycerin (Nitroglycerin (Sl Tab) 0.4 Mg) 1 tab Q5M PRN SL ANGINA; Start at 03:00 Nicotine (Nicoderm 14 Mg/ 24hr) 1 patch DAILY TRANSDERM Last administered on 08:51; Admin Dose 1 PATCH; Start 10/07/16 at 09:00 Naloxone HCl (Narcan) 0.2 mg PRN PRN IV DECREASED REPIRATORY RATE; Start at 12:30 Pantoprazole (Protonix Tab) 40 mg BID PO Last administered on 10/13/16 10:12; Admin Dose 40 MG; Start 10/09/16 at 21:00 MARITA MCGEE MD Oct 13, 2016 19:53
[2016-10-13 20:06] VITALS: BP 125/63; RESP 18
[2016-10-14] MEDS: morphine 2 MG INJ IV PRN ×4 (00:38→12:36)
[2016-10-14] MEDS ORDERED: PANTOPRAZOLE (EC) 40 MG TAB PO SCH (06:00)
[2016-10-14 07:47] LABS: ADD SCAN DIFF NO
[2016-10-14 07:50] LABS: ABNORMAL IP MESSAGE 1; BASOPHILS % 0.5 % (0.0-2.0); EOSINOPHILS # 0.2 10^3/ul (0.0-0.5); HEMATOCRIT 30.8 % (37.0-47.0); HEMOGLOBIN 8.8 g/dl (12.0-16.0); LYMPHOCYTES # 1.2 10^3/ul (0.8-2.9); LYMPHOCYTES % 21.5 % (15.0-51.0); MEAN CORPUSCULAR HEMOGLOBIN 20.2 pg (29.0-33.0); MEAN CORPUSCULAR HGB CONC 28.6 g/dl (32.0-37.0); MEAN CORPUSCULAR VOLUME 70.6 fl (82.0-101.0); MEAN PLATELET VOLUME 9.6 fl (7.4-10.4); MONOCYTE # 0.6 10^3/ul (0.3-0.9); MONOCYTES % 10.6 % (0.0-11.0); NEUTROPHIL # 3.6 10^3/ul (1.6-7.5); NEUTROPHILS % 63.2 % (39.0-77.0); PLATELET COUNT 258 10^3/UL (140-415); RED BLOOD COUNT 4.36 10^6/ul (4.20-5.40); RED CELL DISTRIBUTION WIDTH 28.7 % (11.5-14.5); WHITE BLOOD COUNT 5.7 10^3/ul (4.8-10.8)
[2016-10-14 08:10] LABS: POTASSIUM 3.6 mmol/L (3.5-5.1)
[2016-10-14 08:12] LABS: CREATININE 0.61 mg/dl (0.44-1.00)
[2016-10-14 08:13] LABS: CALCIUM 8.4 mg/dl (8.4-10.2)
[2016-10-14 08:27] VITALS: BP 144/89; RESP 17
[2016-10-14] MEDS: NICOTINE (14 MG/24 HR) PATCH TRANSDERM SCH (09:00)
[2016-10-14] MEDS: PANTOPRAZOLE (EC) 40 MG TAB PO SCH (09:13)
[2016-10-14] MEDS: NACL 0.9% 3 ML SYG IV SCH (09:14)
[2016-10-14] MEDS ORDERED: PANT40TA4 PO (13:30)
[2016-10-14] MEDS ORDERED: FER325 PO (13:30)
[2016-10-14] MEDS ORDERED: FERROUS SULFATE (EC) 325 MG TAB PO SCH (13:30)
--- NOTE | 2016-10-20 20:46 | DS ---
DATE OF ADMISSION: 10/07/2016 DATE OF DISCHARGE: 10/14/2016 FINAL DIAGNOSES: 1. Severe headaches, resolved. 2. Rule out right petrous apex lesion. 3. Evaluation for normal pressure hydrocephalus. 4. Anemia of blood loss. 5. Multiple gastric and duodenal ulcers per esophagogastroduodenoscopy. 6. Hypertension. 7. Tobacco dependence. BRIEF HISTORY: The patient is a 71-year-old female with past medical history positive for hypertens ion. The patient is an everyday smoker. The patient presented to the emergency room with complaint of severe headache. The patient stated that she has a history of (brain clot); however, is not cur rently on any aspirin or any blood thinners. The patient denied any shortness of breath, denies any dysuria. The patient also stated that she has been having some unsteady gait, but denies any loss of consciousness. The patient underwent a CT of the head in the emergency room, which revealed: 1. Mild diffuse atrophy with the ventricles dilated out of proportion to the degree of atrophy sugg estive of normal pressure hydrocephalus and clinical correlation is necessary. 2. Microangiopathic ischemic changes. The patient was given Dilaudid for pain with some improvement in headache and was admitted for [facility] er evaluation and management. HOSPITAL COURSE: The patient was evaluated by Dr. Hannon in neurology consultation. The patie nt was also evaluated by Dr. Anderson in neurosurgery consultation. The patient underwent MRI and MR A, which was: 1. Negative for any acute or early subacute ischemic infarction or intracranial hemorrhage. 2. Marked ventriculomegaly disproportionate to the degree of focal prominence, confluent periventri cular T2 signal hyperintensity on FLAIR sequences , raising the question of transependymal edema and normal pressure hydrocephalus. Correlate clinically. 3. Moderate chronic microvascular ischemic changes with moderate cerebellar volume loss. The patient also underwent internal auditory canal MRI and contrast enhanced MRI of the internal aud itory canal revealed no abnormal enhancement to suggest acoustic schwannoma or labyrinthitis. A sma ll focus of signal abnormality in the right petrous apex following the same signal characteristics o f the skull base bone marrow in keeping with a symmetric petrous apex pneumatization and no petrous apex lesion. Homogenous low signal of the skull corresponding to diffuse increased sclerosis withou t focal skull lesion that is visualized on the recent CT of the head. The patient's headaches gradu ally resolved with [place] and morphine and the patient did not exhibit any neurological deficit. The patient also underwent an LP with normal opening pressures and clear cerebral spinal fluid with no indication of infection. The patient also noted to have anemia and had stool for OB was positive. The patient was evaluated by Dr. Dean in gastroenterology consultation and patient underwent EGD w ith notion of multiple gastric and duodenal ulcers. The patient was continued on Protonix. The pat ient was strongly advised tobacco cessation. The patient was also evaluated by Dr. Cummins and Dr. Hitesh sykes in hematology consultation. The patient was noted to have iron deficiency anemia and was supple mented with iron intravenously. The patient's condition improved. The patient denied any headache. Hemoglobin was stable. The patient's condition improved. The patient was able to ambulate in the hallway with no problem and the patient was discharged home. CONDITION ON DISCHARGE: Hemodynamically stable. ACTIVITY: As patient tolerates. DIET: Regular diet. MEDICATIONS ON DISCHARGE: The patient is given prescription for: 1. Ferrous sulfate. 2. Protonix. FOLLOWUP: The patient instructed to follow up with primary care physician in 1 to 2 weeks. Interdisciplinary plan of care was established for this patient. Plan of care was discussed with Dr Joel Castaneda. Dictated By: TAYA SANFORD DIRECTOR [employer] for ROM CASTANEDA MD, SR/LICO Conf#: [id number] DID#: [id number]
== END 2016-10-14 14:50 | disposition home or self-care (01) | DRG 102 ==
LOC: E/R 19:11 → PP2 10-07 01:13
PROVIDERS: ADMIT Internal Medicine; ATTEND Internal Medicine
PROC: 30233N1 Transfusion of Nonautologous Red Blood Cells into Peripheral Vein, Percutaneous Approach (ICD-10-PCS; 2016-10-08)
PROC: 30233N1 Transfusion of Nonautologous Red Blood Cells into Peripheral Vein, Percutaneous Approach (ICD-10-PCS; 2016-10-09)
PROC: 0DB78ZX Excision of Stomach, Pylorus, Via Natural or Artificial Opening Endoscopic, Diagnostic (ICD-10-PCS; principal; 2016-10-09 12:00)
PROC: 009U3ZX Drainage of Spinal Canal, Percutaneous Approach, Diagnostic (ICD-10-PCS; 2016-10-10)
PROC: B01BYZZ Fluoroscopy of Spinal Cord using Other Contrast (ICD-10-PCS; 2016-10-10)
DX: R51 Headache (principal); K26.0 Acute duodenal ulcer with hemorrhage; K25.0 Acute gastric ulcer with hemorrhage; D62 Acute posthemorrhagic anemia; D51.9 Vitamin B12 deficiency anemia, unspecified; K25.9 Gastric ulcer, unspecified as acute or chronic, without hemorrhage or perforation; I10 Essential (primary) hypertension; F17.210 Nicotine dependence, cigarettes, uncomplicated; D50.9 Iron deficiency anemia, unspecified
CPT/HCPCS: 36415; 36430; 70450; 70544; 70551; 71010; 77021; 80048; 80061; 81001; 81003; 82270; 82607; 82668; 82728; 82746; 82941; 82945; 83010; 83020; 83036; 83540; 83615; 83735; 84100; 84157; 84439; 84443; 84484; 85025; 85045; 85610; 85730; 86850; 86900; 86901; 86920; 87086; 88305; 88312; 89050; 90686; 92610; 96372; 96374; 96375; 96376; C9113; J1170; J1644; J2270; J2405; J2916; J3420; J7040; P9016

== ENCOUNTER 2017-07-09 17:09 | Inpatient (IN) | END 2017-07-18 16:15 | disposition home or self-care (01) | DRG 607 ==

== ENCOUNTER 2018-02-12 13:39 | Inpatient (IN) | END 2018-02-17 13:12 | disposition home or self-care (01) | DRG 392 ==

== ENCOUNTER 2018-10-15 11:34 | Emergency (ER) | payer OTHER, MEDICAID ==
[~2018-10-15] VITALS: Ht 175.3 cm; Wt 85.0 kg
[2018-10-15 11:37] VITALS: Ht 175.3 cm; Wt 85.0 kg
[2018-10-15] MEDS ORDERED: SOD CHLORIDE 0.9% 500 ML IV STA (12:30)
[2018-10-15] MEDS ORDERED: KETOROLAC 15 MG INJ IV STA (12:30)
--- NOTE | 2018-10-15 12:30 | ERD ---
ER Documentation Chief Complaint Chief Complaint Complains of SOB and bilateral leg pain Hx of DVT and COPD HPI 73-year-old woman complains of sharp substernal nonradiating nonexertional chest pain beginning last night and getting worse this morning. She denies history of chest pain and denies prior episodes but states she saw last year and was diagnosed with right-sided chest and right neck mass. She never followed up with her doctor in regards to the masses found on her right side. Patient denies shortness of breath, no cough or wheezing, no calf or leg swelling, no fevers or chills, no dysuria, no headache or blurry vision. ROS All systems reviewed and are negative except as per history of present illness. Medications Home Meds Reported Medications Lisinopril* (Lisinopril*) 20 Mg Tablet, 20 MG PO DAILY, #30 TAB 10/15/18 Allergies Allergies: Coded Allergies: No Known Allergy (Unverified , 10/15/18) PMhx/Soc History of right-sided neck mass (possible malignancy), hypertension, COPD, 50+-pack-year history of tobacco smoke, normal pressure hydrocephalus, adnexal mass History of Surgery: Yes (c section) Anesthesia Reaction: No Hx Neurological Disorder: No Hx Respiratory Disorders: Yes (COPD) Hx Cardiac Disorders: Yes (HTN, enlarged heart) Hx Psychiatric Problems: No Hx Miscellaneous Medical Probl: No ( mass in the overy and colon) Hx Alcohol Use: No Hx Substance Use: No Hx Tobacco Use: Yes FmHx Family History: No diabetes Physical Exam Vitals Vital Signs Date Temp Pulse Resp B/P (MAP) Pulse Ox O2 O2 Flow FiO2 Time Delivery Rate 10/15/18 70 16 92/60 (71) 98 Room Air 13:18 10/15/18 81 22 95 Room Air 12:32 10/15/18 98.6 86 20 92 11:37 Physical Exam GENERAL: Well-developed, well-nourished, appears dehydrated, afebrile HEENT: Dry mucous membranes, pink conjunctiva, no cervical spine tenderness or step-off deformities, no goiter, no jaundice or icterus, extraocular movements intact without pain. No submandibular induration, and no pharyngeal erythema NEURO: Alert and oriented 3, cranial nerves II through XII intact bilaterally, pupils equal round reactive to light, no focal deficits or facial asymmetry, sensation intact distally Strength 5/5 in upper and lower extremities bilaterally CARDIAC: Regular rate and rhythm, no murmurs rubs or gallops LUNGS: Clear bilaterally no wheezing crackles or stridor ABDOMEN: Soft nontender, no guarding, no rigidity, no rebound, no psoas sign no obturator sign. SKIN: Warm and dry to touch, no abrasions, contusions, or hematomas, no lacerations, no ecchymosis, no target lesions, and without ulcers EXTREMITIES: No clubbing cyanosis or edema, calves are bilaterally symmetrical, no Homans sign, no popliteal cord sign. Distal pulses equal and bilateral PSYCH: Normal affect without agitation or irritability Result Diagram: 10/15/18 1254 10/15/18 1254 Results 24 hrs Laboratory Tests Test 10/15/18 12:30 10/15/18 12:54 Blood Gas Specimen Source Blood arterial Arterial Blood Date Drawn 10/15/2018 12:56:25 PM Arterial Blood pH (Temp corrected) 7.336 Arterial Blood pCO2 (Temp correct) 41.3 mmhg Arterial Blood pO2 (Temp corrected) 83.3 mmHG Arterial Blood HCO3 21.6 mmol/L Arterial Blood Base Excess -4.0 mmol/L Arterial Blood Oxygen Saturation 94.5 mmHG Tashi Test ACCEPTAB Arterial Blood Gas Puncture Site Right Radial Arterial Blood Carboxyhemoglobin 3.2 % Arterial Blood Methemoglobin 0.2 % Blood Gas A-a O2 Differential 17.0 mmHg Oxyhemoglobin Percent 91.3 % Blood Gas Temperature 37.0 C Blood Gas Modality ROOM AIR FiO2 21.0 % Blood Gas Notified Whom TM Blood Gas Notified Time 10/15/2018 1:05:19 PM White Blood Count 6.0 10^3/ul Red Blood Count 5.03 10^6/ul Hemoglobin 15.5 g/dl Hematocrit 47.9 % Mean Corpuscular Volume 95.2 fl Mean Corpuscular Hemoglobin 30.8 pg Mean Corpuscular Hemoglobin Concent 32.4 g/dl Red Cell Distribution Width 13.8 % Platelet Count 192 10^3/UL Mean Platelet Volume 10.2 fl Immature Granulocytes % 0.700 % Neutrophils % 50.4 % Lymphocytes % 35.7 % Monocytes % 10.2 % Eosinophils % 2.0 % Basophils % 1.0 % Nucleated Red Blood Cells % 0.0 /100WBC Immature Granulocytes # 0.040 10^3/ul Neutrophils # 3.0 10^3/ul Lymphocytes # 2.1 10^3/ul Monocytes # 0.6 10^3/ul Eosinophils # 0.1 10^3/ul Basophils # 0.1 10^3/ul Nucleated Red Blood Cells # 0.0 10^3/ul Prothrombin Time 11.6 Sec Prothrombin Time Ratio 0.9 INR International Normalized Ratio 0.84 Activated Partial Thromboplast Time 23.8 Sec Sodium Level 148 mmol/L Potassium Level 3.9 mmol/L Chloride Level 112 mmol/L Carbon Dioxide Level 23 mmol/L Anion Gap 13 Blood Urea Nitrogen 21 mg/dl Creatinine 0.81 mg/dl Est Glomerular Filtrat Rate mL/min mL/min Glucose Level 85 mg/dl Calcium Level 9.4 mg/dl Total Bilirubin 0.4 mg/dl Direct Bilirubin 0.00 mg/dl Indirect Bilirubin 0.4 mg/dl Aspartate Amino Transf (AST/SGOT) 20 IU/L Alanine Aminotransferase (ALT/SGPT) 11 IU/L Alkaline Phosphatase 91 IU/L Troponin I < 0.012 ng/ml B-Type Natriuretic Peptide 59 PG/ML Total Protein 6.7 g/dl Albumin 3.9 g/dl Globulin 2.80 g/dl Albumin/Globulin Ratio 1.39 Lipase 172 U/L Current Medications Medications Dose Sig/Jason Start Time Status Last (Trade) Ordered Route PRN Stop Time Admin Dose Reason Admin Sodium 500 ml @ Q1H STAT 10/15/18 DC 10/15/18 Chloride 500 mls/hr IV 12:30 13:48 10/15/18 13:29 Ketorolac 15 mg ONCE STAT 10/15/18 DC 10/15/18 Tromethamine IV 12:30 13:48 (Toradol) 10/15/18 12:33 IV Flush 10 ml STK-MED 10/15/18 DC 10/15/18 (NS 10 ml) ONCE .ROUTE 13:47 14:35 10/15/18 13:48 Sodium 100 ml @ ud STK-MED 10/15/18 DC 10/15/18 Chloride ONCE .ROUTE 13:47 14:36 10/15/18 13:48 Iohexol 100 ml @ ud STK-MED 10/15/18 DC 10/15/18 ONCE .ROUTE 13:47 14:37 10/15/18 13:48 Iohexol 50 ml STK-MED 10/15/18 DC 10/15/18 (Omnipaque ONCE .ROUTE 13:47 14:37 350mg/ ml) 10/15/18 13:48 Aspirin 324 mg ONCE ONCE 10/15/18 DC 10/15/18 (Aspirin) PO 14:30 15:10 10/15/18 14:31 Procedures/MDM IV line was established patient was placed on front desk monitor rhythm strip rev ealed a sinus rhythm at about 80 bpm with upright P and T waves. Patient was afebrile EKG performed, read by me: 74 bpm, normal sinus rhythm, normal axis, no acute ST segment changes, narrow QRS complex, with good R-wave progression in precordial leads. 1 view chest x-ray performed, read by me revealed atelectatic changes bilaterally, no acute infiltrates, no pneumothorax ABG performed on room air revealed a pH of 7.34, PCO2 41, PO2 83. Normal CBC was normal, electrolytes revealed dehydration with a BUN/creatinine of 21/0.8, liver function tests were normal, troponin was negative Given the patient's history of unexplained neck masses CT scan of the neck with IV contrast was performed,IMPRESSION: CT of the neck demonstrates a heterogeneous area of mucosal thickening along the posterior hypopharyngeal surface extending to the supraglottic larynx. It is unclear if this represents mucosal redundancy or atrial mass. Direct visualization may be useful. No lymphadenopathy is seen. CT angiogram of the chest was performed and there was no evidence of aortic dissection or pulmonary artery embolism. There is evidence of pulmonary hypertension consistent with patient's respiratory symptoms. Please refer to radiologist dictation for full report. I administered 500 cc normal saline IV and Toradol 15mg IV x1 for complaints of pain. Given her chest pain also administered aspirin 324 mg p.o. for cardioprotective measures Patient will be admitted to telemetry setting for continued medical management and chest pain evaluation. Departure Diagnosis: Primary Impression: Chest pain Chest pain type: unspecified Qualified Codes: R07.9 - Chest pain, unspecified Additional Impressions: Dehydration Pulmonary hypertension Condition: HUMPHREY Haddad MD Oct 15, 2018 12:30
[2018-10-15] MEDS ORDERED: LISI-471 PO (13:23)
[2018-10-15] MEDS ORDERED: IOHEXOL 100 ML ONE (13:47)
[2018-10-15] MEDS ORDERED: SOD CHLORIDE 0.9% 100 ML ONE (13:47)
[2018-10-15] MEDS ORDERED: IOHEXOL 350MG/ML 50 ML BTL ONE (13:47)
[2018-10-15] MEDS: ASPIRIN 81 MG TAB PO ONE ×3 (15:05→15:10)
[2018-10-15] MEDS ORDERED: ALBUTEROL 0.083% (NEB) 2.5 MG/3 ML AMP HHN STA (15:46)
[2018-10-15] MEDS ORDERED: traMADol 50 MG TAB PO ONE (17:00)
[2018-10-15 18:37] VITALS: BP 123/82; PULSE 97; RESP 18
[2018-10-15] MEDS ORDERED: OXYCODONE/ACETAMINOPHEN (5/325) TAB PO ONE (20:00)
== END 2018-10-15 21:20 | disposition left against medical advice (07) ==
LOC: E/R 11:34 → CANBEDREQ 10-16 09:18
DX: I27.20 Pulmonary hypertension, unspecified (principal); E86.0 Dehydration; J44.9 Chronic obstructive pulmonary disease, unspecified; R06.02 Shortness of breath; Z87.891 Personal history of nicotine dependence
CPT/HCPCS: 36415; 36600; 70491; 71045; 71275; 80053; 82803; 83690; 83880; 84484; 85025; 85610; 85730; 93005; 94644; 96374; 99285; J1885; J7040; Q9967

== ENCOUNTER 2019-05-20 08:54 | Inpatient (IN) | payer OTHER, MEDICAID ==
[2019-05-20] VITALS (12 sets, daily range): BP systolic 131–151; BP diastolic 73–96; PULSE 78–88; RESP 17–25; Ht 162.6 cm; Wt 85.9 kg
[~2019-05-20] VITALS: Ht 162.6 cm; Wt 85.9 kg
[~2019-05-20 08:54] MED LIST: IBUP-1541 PO; LISI-471 PO; NICO-546 TRANSDERM
[2019-05-20] MEDS ORDERED: KETOROLAC 15 MG INJ IV STA (10:43)
[2019-05-20] MEDS ORDERED: NACL 0.9% 3 ML SYG IV SCH (14:00)
[2019-05-20] MEDS ORDERED: ONDANSETRON 4 MG INJ IV PRN ×3 (14:00→18:30)
[2019-05-20] MEDS ORDERED: ACETAMINOPHEN 325 MG TAB PO PRN (14:00)
[2019-05-20] MEDS: PIPER-TAZO 3.375 GM IV (PMX) 100 ML IVPB SCH ×2 (15:10→20:12)
[2019-05-20] MEDS ORDERED: BUPIVACAINE 0.25%/EPI (SDV) 10 ML INJ ONE (15:39)
[2019-05-20] MEDS ORDERED: DESFLURANE 15 MIN ONE (16:56)
[2019-05-20] MEDS ORDERED: MIDAZOLAM 1 MG/ML 2 ML INJ ONE (16:56)
[2019-05-20] MEDS ORDERED: ONDANSETRON 4 MG INJ ONE (16:56)
[2019-05-20] MEDS ORDERED: ROCURONIUM 50 MG INJ ONE (16:56)
[2019-05-20] MEDS ORDERED: METOPROLOL 5 MG INJ ONE ×2 (16:56→17:49)
[2019-05-20] MEDS ORDERED: PROPOFOL 20 ML ONE (16:56)
[2019-05-20] MEDS ORDERED: FENTAnyl 50 MCG/ML VIAL ONE ×2 (16:56→17:34)
[2019-05-20] MEDS ORDERED: LIDOCAINE 2% (SDV) 5 ML INJ ONE (16:56)
[2019-05-20] MEDS ORDERED: ROPIVACAINE 0.5 % 30 ML VIAL ONE (16:56)
[2019-05-20] MEDS ORDERED: HYDROmorphONE 1 MG/5 ML IV SYRINGE IV PRN ×6 (17:00→19:00)
[2019-05-20] MEDS ORDERED: CEFAZOLIN 1 GM INJ ONE (17:31)
[2019-05-20] MEDS ORDERED: LABETALOL HCL 20MG INJ ONE (17:58)
[2019-05-20] MEDS ORDERED: SUGAMMADEX SODIUM 200 MG/2 ML VIAL IV ONE (18:03)
[2019-05-20] MEDS ORDERED: OXYCODONE/ACETAMINOPHEN (5/325) TAB PO PRN (18:30)
[2019-05-20] MEDS ORDERED: morphine 2 MG INJ IV PRN (18:30)
[2019-05-20] MEDS ORDERED: ALBUTEROL 0.083% (NEB) 2.5 MG/3 ML AMP HHN STA (19:08)
[2019-05-20] MEDS ORDERED: ALBUTEROL 0.5% (NEB) 2.5 MG/0.5 ML AMP ONE (19:10)
[2019-05-20] MEDS: PANTOPRAZOLE 40 MG INJ IV SCH (20:12)
[2019-05-20] MEDS: SOD CHLORIDE 0.9% 1,000 ML IV SCH (20:16)
[2019-05-20] MEDS: NICOTINE (21 MG/24 HR) PATCH TRANSDERM SCH (20:17)
[2019-05-21] MEDS: morphine 2 MG INJ IV PRN ×6 (00:18→21:34)
[2019-05-21] MEDS: PIPER-TAZO 3.375 GM IV (PMX) 100 ML IVPB SCH ×2 (00:19→05:00)
[2019-05-21] MEDS: ALBUTEROL/IPRATROPIUM (NEB) 3 ML AMP HHN PRN (01:18)
[2019-05-21] MEDS ORDERED: ALBUTEROL 0.083% (NEB) 2.5 MG/3 ML AMP HHN PRN (02:00)
[2019-05-21] MEDS ORDERED: METHYLPREDNISOLONE 125 MG INJ IV ONE (02:00)
[2019-05-21 02:13] VITALS: BP 100/62; PULSE 76; RESP 17
[2019-05-21] MEDS: ALBUTEROL/IPRATROPIUM (NEB) 3 ML AMP HHN SCH ×5 (03:02→20:27)
[2019-05-21] MEDS: SOD CHLORIDE 0.9% 1,000 ML IV SCH (03:08)
[2019-05-21] MEDS ORDERED: HYDROmorphONE 0.5 MG/0.5 ML SYG IV PRN (05:30)
[2019-05-21 07:42] VITALS: BP 118/91; PULSE 97; RESP 16
[2019-05-21] MEDS ORDERED: METHYLPREDNISOLONE 40 MG INJ IV SCH (09:00)
[2019-05-21] MEDS: NICOTINE (21 MG/24 HR) PATCH TRANSDERM SCH (09:19)
[2019-05-21] MEDS: PANTOPRAZOLE 40 MG INJ IV SCH (09:19)
[2019-05-21] MEDS ORDERED: FLU VACC QS 2019-20 (6MOS UP) 0.5 ML SYG IM* ONE (10:00)
[2019-05-21] MEDS ORDERED: IBUPROFEN 400 MG TAB PO PRN (10:30)
[2019-05-21] MEDS ORDERED: IOHEXOL 300MG/ML 150 ML BTL ONE (12:54)
[2019-05-21] MEDS ORDERED: SOD CHLORIDE 0.9% 100 ML ONE (12:54)
[2019-05-21 15:20] VITALS: BP 122/83; PULSE 108; RESP 16
[2019-05-21 20:11] VITALS: BP 126/67; PULSE 108; RESP 17
[2019-05-22 01:33] VITALS: BP 126/62; PULSE 91; RESP 16
[2019-05-22] MEDS: morphine 2 MG INJ IV PRN ×2 (01:36→05:46)
[2019-05-22] MEDS: ALBUTEROL/IPRATROPIUM (NEB) 3 ML AMP HHN PRN (01:47)
[2019-05-22] MEDS ORDERED: PANTOPRAZOLE (EC) 40 MG TAB PO SCH (06:00)
[2019-05-22 08:24] VITALS: BP 137/75; PULSE 78; RESP 16
[2019-05-22] MEDS: NICOTINE (21 MG/24 HR) PATCH TRANSDERM SCH (08:26)
[2019-05-22] MEDS: ALBUTEROL/IPRATROPIUM (NEB) 3 ML AMP HHN SCH ×2 (08:41→12:47)
[2019-05-22] MEDS: OXYCODONE/ACETAMINOPHEN (5/325) TAB PO PRN ×2 (09:40→13:45)
[2019-05-22 14:50] VITALS: BP 122/76; PULSE 97; RESP 16
== END 2019-05-22 16:12 | disposition home or self-care (01) | DRG 343 ==
LOC: E/R 08:54 → 5EC 13:36 → SUATTDRO 13:47
PROVIDERS: ADMIT Internal Medicine; ATTEND Internal Medicine
PROC: 0DTJ4ZZ Resection of Appendix, Percutaneous Endoscopic Approach (ICD-10-PCS; principal; 2019-05-20 16:30)
PROC: 3E0234Z Introduction of Serum, Toxoid and Vaccine into Muscle, Percutaneous Approach (ICD-10-PCS; 2019-05-21)
DX: K35.80 Unspecified acute appendicitis (principal); J44.9 Chronic obstructive pulmonary disease, unspecified; I10 Essential (primary) hypertension; F17.210 Nicotine dependence, cigarettes, uncomplicated; E11.9 Type 2 diabetes mellitus without complications; R07.81 Pleurodynia; Z23 Encounter for immunization; Z79.82 Long term (current) use of aspirin
CPT/HCPCS: 71045; 71270; 74176; 80053; 80061; 81003; 83036; 83690; 83735; 84100; 84443; 85025; 88304; 90686; 94640; 94664; 96374; C9113; J0690; J1170; J1885; J2250; J2270; J2405; J2543; J2795; J2920; J2930; J3010; J7030; Q9967